=== PATIENT | female | born 1980 | race Caucasian/White ===

== ENCOUNTER 2018-01-29 11:00 | Emergency (ER) | payer OTHER, SELFPAY ==
[2018-01-29 11:09] VITALS: BP 117/79; PULSE 63; RESP 18; TEMP 36.1; O2SAT 97; BMI 29.9
--- NOTE | 2018-01-29 11:45 | ED.BACK ---
HPI - Back Pain/Injury General Chief Complaint: Back Pain/Injury Stated Complaint: Severe Low Back Diallo Time Seen by Provider: 01/29/18 11:10 Source: patient and EMS Mode of arrival: EMS Limitations: no limitations History of Present Illness HPI Narrative: Patient is a 37-year-old female who presents with back pain. This morning she was bending over putting on her pants when she had severe pain. She did not fall. She has numbness around her abdomen and down the lateral part of her legs. She has had back problems in the past, but not for time. No changes in bowel or bladder habits. MD Complaint: back pain Onset (ago): minute(s) Related Data Home Medications Medication Instructions Recorded Confirmed thyroid (pork) [Nature-Throid] 81.25 mg PO #0 07/26/16 [PRO-BIOTICS ] #0 04/04/17 multivitamin [Multiple Vitamins] 1 tab PO QDAY #0 04/04/17 Previous Rx's Medication Instructions Recorded medroxyprogesterone 0 PO Q DAY #14 tab 04/06/17 diazepam [Valium] 5 mg PO BID PRN #10 tab 01/29/18 meloxicam [Mobic] 7.5 mg PO DAILY #20 tab 01/29/18 Allergies Allergy/AdvReac Type Severity Reaction Status Date / Time No Known Allergies Allergy Verified 01/29/18 11:54 Review of Systems Review of Systems All systems reviewed & are unremarkable except as noted in HPI and below Constitutional Denies chills, Denies fever(s), Denies lethargy and Denies weakness Cardiovascular Denies dyspnea and Denies dyspnea on exertion Respiratory Denies cough, Denies dyspnea, Denies dyspnea on exertion and Denies wheezing Gastrointestinal Gastrointestinal: Denies abdominal pain, Denies change in bowel habits, Denies diarrhea, Denies nausea and Denies vomiting Musculoskeletal Reports system reviewed and no additional complaints, except as docu Integumentary/Breasts Denies pruritus, Denies erythema, Denies rash and Denies wounds Neurologic Reports system reviewed and no additional complaints, except as docu and Denies weakness Allergic/Immunologic Denies wheezing PFSH Medical History Hypothyroid (Acute) Family History Father Age: 68 Cancer Diabetes mellitus Mother Thyroid condition Sister Age: 41 Thyroid condition Sister Age: 31 Diabetes mellitus Social History Smoking Status: Never smoker Exam Initial Vital Signs Initial Vital Signs: Vital Signs Temperature 97 F L 01/29/18 11:09 Pulse Rate 63 01/29/18 11:09 Respiratory Rate 18 01/29/18 11:09 Blood Pressure 117/79 01/29/18 11:09 Pulse Oximetry 97 01/29/18 11:09 Const General: cooperative and well developed Nutritional Appearance: well nourished Orientation: alert, awake, oriented x3 and not confused Other: Crawled in position Chest Chest: normal inspection of the chest Back/Spine/Pelvis Back: normal to inspection and back tenderness (Midline and lumbar) Skin General: no rashes or lesions noted, No jaundice and No petechiae Neuro General: alert, oriented x3, gait normal and no focal motor deficits Speech: speech normal Course Orders Ordered: Discontinued Medications Diazepam (Valium) 5 mg PO NOW ONE Stop: 01/29/18 11:53 Last Admin: 01/29/18 11:58 Dose: 5 mg Ketorolac Tromethamine (Toradol) 60 mg IM NOW ONE Stop: 01/29/18 11:53 Last Admin: 01/29/18 11:58 Dose: 60 mg Vital Signs - 8 hr 01/29/18 11:09 01/29/18 12:56 Temperature 97 F L Pulse Rate 63 75 Respiratory Rate 18 18 Blood Pressure 117/79 115/70 Pulse Oximetry 97 100 MDM - Back Pain/Injury Lab Data Attestation: I reviewed the patient's lab results. preg negative Discharge Plan Departure Patient Disposition: Home, Self-Care Clinical Impression: Strain of lumbar region Discharge Date/Time: 01/29/18 12:57 Interventions: ED Discharge Assessment Last Done: 01/29/18 12:56 Instructions: DI for Low Back Pain Activity Restrictions/Additional Instructions: *You have been diagnosed with back pain *What to do: Recommend light activity no strenuous activity *Take medications as directed -Mobic 7.5 mg twice a day do not combine with other NSAIDs such as ibuprofen or Aleve Advil etc -Valium 1 tablet every 12 hr if needed for muscle spasm *Follow up with your primary care provider in 2-3 days *Return to ER if you should have changes in bowel or bladder habits, increasing pain [or] any new, worsening or concerning symptoms Prescriptions: New meloxicam [Mobic] 7.5 mg tablet 7.5 mg PO DAILY Qty: 20 RF: 0 diazepam [Valium] 5 mg tablet 5 mg PO BID PRN (Reason: muscle spasm) Qty: 10 RF: 0 No Action thyroid (pork) [Nature-Throid] 81.25 MG tablet 81.25 mg PO Qty: 0 RF: 0 multivitamin [Multiple Vitamins] 1 EACH tablet 1 tab PO QDAY Qty: 0 RF: 0 [PRO-BIOTICS ] Qty: 0 RF: 0 medroxyprogesterone 10 MG tablet PO Q DAY Qty: 14 RF: 1
[2018-01-29] MEDS: KETOROLAC 60 MG/2 ML VIAL IM (11:58)
[2018-01-29] MEDS: diazePAM 5 MG TABLET PO (11:58)
--- NOTE | 2018-01-29 12:46 | PC.NURSE ---
Able to get self off stretcher and ambulate slowly to the BR without assistance
[2018-01-29 12:56] VITALS: BP 115/70; PULSE 75; RESP 18; O2SAT 100
== END 2018-01-29 12:57 | disposition home or self-care (01) ==
PROVIDERS: Emergency Provider Emergency Medicine; Family Provider Naturopath; PCP Naturopath
DX: S39.012A Strain of muscle, fascia and tendon of lower back, initial encounter (principal); T73.3XXA Exhaustion due to excessive exertion, initial encounter
CPT/HCPCS: 81025; 96372; 99283; J1885

== ENCOUNTER → 2018-03-07 16:21 | Outpatient (CLI) | payer OTHER, SELFPAY ==
[2018-03-07 17:41] LABS: Free T3, Triiodothyronine Free 4.62 pg/mL (2.77-5.27); Free T4, Direct Thyroxine 0.88 ng/dL (0.78-2.19)
[2018-03-07 17:55] LABS: Thyroid Stimulating Hormone 3.63 uIU/mL (0.47-4.68)
[2018-03-09 14:58] LABS: Thyroid Peroxidase Antibodies 177 IU/mL (< 9)
== END ==
PROVIDERS: PCP Naturopath; Visit Provider Naturopath
DX: E06.3 Autoimmune thyroiditis (principal)
CPT/HCPCS: 36415; 84439; 84443; 84481; 86376

== ENCOUNTER → 2018-04-10 14:00 | Outpatient (CLI) | payer OTHER, SELFPAY ==
[2018-04-10 15:53] LABS: Thyroid Stimulating Hormone 2.45 uIU/mL (0.47-4.68)
== END ==
PROVIDERS: PCP Naturopath; Visit Provider Naturopath
DX: E06.3 Autoimmune thyroiditis (principal)
CPT/HCPCS: 36415; 84443

== ENCOUNTER → 2018-05-11 15:35 | Outpatient (CLI) | payer OTHER, SELFPAY ==
[2018-05-11 17:08] LABS: Thyroid Stimulating Hormone 1.15 uIU/mL (0.47-4.68)
== END ==
PROVIDERS: PCP Naturopath; Visit Provider Naturopath
DX: E06.3 Autoimmune thyroiditis (principal)
CPT/HCPCS: 36415; 84443

== ENCOUNTER → 2018-08-08 15:03 | Outpatient (CLI) | payer OTHER, SELFPAY ==
[2018-08-08 15:14] LABS: Bacteria Urine None Seen; WBC Urine None Seen (0-5/HPF)
[2018-08-08 15:28] LABS: Appearance Urine UA CLEAR; Bilirubin Urine UA NEGATIVE (NEGATIVE); Color Urine UA YELLOW; Glucose Urine UA NEGATIVE (Normal); Ketones Urine UA NEGATIVE (NEGATIVE); Leukocyte Esterase Urine UA NEGATIVE (NEGATIVE); Nitrite Urine UA NEGATIVE (Negative); Occult Blood Urine UA NEGATIVE (Negative); Protein Urine UA NEGATIVE (Negative); Urobilinogen Urine UA 0.2 E.U./dL (0.2)
[2018-08-08 15:43] LABS: Culture Indicated Urine Cult Not Indicated; RBC Urine None Seen (0-5/HPF); Urine Comments Microscopic Normal
== END ==
PROVIDERS: PCP Naturopath; Visit Provider Naturopath
DX: M54.5 Low back pain (principal); R35.0 Frequency of micturition; R19.5 Other fecal abnormalities
CPT/HCPCS: 81001

== ENCOUNTER → 2018-08-09 14:56 | Outpatient (CLI) | payer OTHER, SELFPAY ==
[2018-08-12 16:49] LABS: Fecal Immunochemical Test NOT DETECTED
== END ==
PROVIDERS: PCP Naturopath; Visit Provider Naturopath
DX: M54.5 Low back pain (principal); R35.0 Frequency of micturition; R19.5 Other fecal abnormalities
CPT/HCPCS: 82274

== ENCOUNTER → 2018-08-23 07:39 | Outpatient (CLI) | payer OTHER, SELFPAY ==
[2018-08-23 08:34] LABS: Add Manual Diff / Slide Review NO; Basophils Percent Auto 0.5 % (0-2); Eosinophils Percent Auto 2.1 % (2-4); Hematocrit 42.2 % (36-46); Hemoglobin 14.1 g/dL (12.0-16.0); Lymphocytes Percent Auto 22.8 % (25-40); Mean Corpuscular HGB Conc 33.3 % (30-36); Mean Corpuscular Hemoglobin 29.7 PG (26-34); Monocytes Percent Auto 7.2 % (3-14); Neutrophils Absolute Auto 4800 /uL (1500-7000); Neutrophils Percent Auto 67.4 % (50-75); Platelet Count 216 X10^3/uL (150-400); Red Blood Cell Count 4.75 X10^6/uL (4.0-5.2); Red Cell Distribution Width 12.5 % (11.6-14.8); White Blood Cell Count 7.1 X10^3/uL (4.5-11.0)
[2018-08-23 08:57] LABS: Alanine Aminotransferase 22 IU/L (9-52); Albumin 4.4 g/dL (3.5-5.0); Albumin Globulin Ratio 1.3 (1.0-2.8); Alkaline Phosphatase 63 U/L (38-126); Aspartate Aminotransferase 25 IU/L (14-36); BUN Creatinine Ratio 17.5 (6-22); Bilirubin Total 0.6 mg/dL (0.2-1.3); Blood Urea Nitrogen 14 mg/dL (7-17); Calcium 8.9 mg/dL (8.4-10.2); Carbon Dioxide 27 mmol/L (22-32); Chloride 104 mmol/L (98-107); Cholesterol 147 mg/dL (140-199); Estimated Glomerular Filt Rate > 60.0 mL/min (>60); Globulin 3.5 g/dL (1.7-4.1); Glucose 91 mg/dL (70-100); HDL Cholesterol 51 mg/dL (40-60); HEMOLYSIS < 15 (0-50); LDL Cholesterol Calculated 85 mg/dL (<100); Potassium 4.4 mmol/L (3.4-5.1); Sodium 143 mmol/L (137-145); Total Protein 7.9 g/dL (6.3-8.2); Triglycerides 53 mg/dL (35-150)
[2018-08-23 09:09] LABS: Free T4, Direct Thyroxine 0.91 ng/dL (0.78-2.19)
[2018-08-23 09:22] LABS: Thyroid Stimulating Hormone 2.89 uIU/mL (0.47-4.68)
[2018-08-24 15:23] LABS: Thyroid Peroxidase Antibodies 109 IU/mL (< 9)
== END ==
PROVIDERS: PCP Naturopath; Visit Provider Naturopath
DX: Z00.00 Encounter for general adult medical examination without abnormal findings (principal); E06.3 Autoimmune thyroiditis
CPT/HCPCS: 36415; 80053; 80061; 84439; 84443; 84481; 85025; 86376

== ENCOUNTER → 2018-10-12 16:14 | Outpatient (CLI) | payer OTHER, SELFPAY ==
[2018-10-12 18:05] LABS: Thyroid Stimulating Hormone 0.29 uIU/mL (0.47-4.68)
== END ==
PROVIDERS: PCP Naturopath; Visit Provider Naturopath
DX: E06.3 Autoimmune thyroiditis (principal)
CPT/HCPCS: 36415; 84443

== ENCOUNTER → 2018-12-04 08:19 | Outpatient (CLI) | payer OTHER, SELFPAY ==
--- NOTE | 2018-12-04 | DI.US.S_ITS ---
PROCEDURE: US ABDOMEN COMPLETE INDICATIONS: PERIUMBILICAL PAIN TECHNIQUE: Real-time scanning was performed of the abdominal and retroperitoneal organs, with image documentation. COMPARISON: None. FINDINGS: Liver: Liver is normal in size and homogeneous in echotexture. Gallbladder: Unremarkable. No sonographic Walker's sign Biliary ducts: Intrahepatic bile ducts are non-dilated. Extrahepatic bile duct caliber measures 1-2 mm. Normal is 6-7 mm or less in diameter, or 10 mm or less post-cholecystectomy. Pancreas: Visualized portions of the pancreas are sonographically normal. Spleen: Spleen is normal in size and homogeneous in echotexture. Kidneys: Kidneys are normal in size and echotexture. Right kidney measures 11.8 cm long; left kidney measures 10.9 cm long. No hydronephrosis or nephrolithiasis. No solid masses. Aorta: Visualized aorta is normal in caliber at less than 3 cm. Iliacs: Proximal common iliac arteries are normal in caliber at less than 2.5 cm. IVC: Intrahepatic inferior vena cava is patent. Miscellaneous: No free abdominal fluid. Small 1.0 cm umbilical hernia containing fat (nonreducible). IMPRESSION: Incidentally noted small 1.0 cm fat containing umbilical hernia. Elsewhere, no acute process seen. Dictated by: Gaurav Neff M.D. on 12/04/2018 at 9:25 Approved by: Gaurav Neff M.D. on 12/04/2018 at 9:27
== END ==
PROVIDERS: PCP Naturopath; Visit Provider Naturopath
DX: R10.9 Unspecified abdominal pain (principal); K42.9 Umbilical hernia without obstruction or gangrene
CPT/HCPCS: 76700

== ENCOUNTER → 2018-12-15 14:15 | Outpatient (CLI) | payer OTHER, SELFPAY ==
[2018-12-15 15:40] LABS: Thyroid Stimulating Hormone < 0.02 uIU/mL (0.47-4.68)
== END ==
PROVIDERS: PCP Naturopath; Visit Provider Naturopath
DX: E06.3 Autoimmune thyroiditis (principal)
CPT/HCPCS: 36415; 84443

== ENCOUNTER → 2019-02-20 16:13 | Outpatient (CLI) | payer OTHER, SELFPAY ==
[2019-02-20 17:49] LABS: Thyroid Stimulating Hormone 8.83 uIU/mL (0.47-4.68)
== END ==
PROVIDERS: PCP Naturopath; Visit Provider Naturopath
DX: E06.3 Autoimmune thyroiditis (principal)
CPT/HCPCS: 36415; 84443

== ENCOUNTER → 2019-04-11 11:44 | Outpatient (CLI) | payer OTHER, SELFPAY ==
[2019-04-11 12:52] LABS: Free T4, Direct Thyroxine 0.77 ng/dL (0.78-2.19)
[2019-04-11 13:06] LABS: Thyroid Stimulating Hormone 2.04 uIU/mL (0.47-4.68)
[2019-04-13 15:55] LABS: Thyroid Peroxidase Antibodies 507 IU/mL (< 9)
== END ==
PROVIDERS: PCP Naturopath; Visit Provider Naturopath
DX: E06.3 Autoimmune thyroiditis (principal)
CPT/HCPCS: 36415; 84439; 84443; 84481; 86376

== ENCOUNTER → 2019-09-27 17:47 | Outpatient (CLI) | payer OTHER, SELFPAY | PROVIDERS: PCP Naturopath; Visit Provider Physician Assistant | DX: J02.9 Acute pharyngitis, unspecified (principal) | CPT/HCPCS: 87070 ==

== ENCOUNTER → 2019-10-18 08:38 | Outpatient (CLI) | payer OTHER, SELFPAY ==
[2019-10-18 09:09] LABS: Add Manual Diff / Slide Review NO; Basophils Absolute Auto 0 /uL (0-100); Basophils Percent Auto 0.4 % (0-2); Eosinophils Absolute Auto 100 /uL (0-450); Eosinophils Percent Auto 1.5 % (2-4); Hematocrit 42.3 % (36-46); Hemoglobin 14.4 g/dL (12.0-16.0); Lymphocytes Absolute Auto 1500 /uL (1100-4500); Lymphocytes Percent Auto 23.9 % (25-40); Mean Corpuscular Hemoglobin 30.6 PG (26-34); Mean Corpuscular Volume 90.1 fL (80-100); Monocytes Absolute Auto 400 /uL (0-900); Monocytes Percent Auto 6.3 % (3-14); Neutrophils Absolute Auto 4400 /uL (1500-7000); Neutrophils Percent Auto 67.9 % (50-75); Platelet Count 236 X10^3/uL (150-400); Red Blood Cell Count 4.69 X10^6/uL (4.0-5.2); Red Cell Distribution Width 12.1 % (11.6-14.8); White Blood Cell Count 6.5 X10^3/uL (4.5-11.0)
[2019-10-18 09:18] LABS: Alanine Aminotransferase 19 IU/L (<35); Albumin 4.5 g/dL (3.5-5.0); Albumin Globulin Ratio 1.2 (1.0-2.8); Alkaline Phosphatase 67 U/L (38-126); Aspartate Aminotransferase 30 IU/L (14-36); BUN Creatinine Ratio 18.9 (6-22); Bilirubin Total 0.8 mg/dL (0.2-1.3); Blood Urea Nitrogen 17 mg/dL (7-17); Calcium 9.2 mg/dL (8.4-10.2); Carbon Dioxide 26 mmol/L (22-32); Chloride 105 mmol/L (98-107); Cholesterol 183 mg/dL (140-199); Estimated Glomerular Filt Rate > 60.0 mL/min (>60); Globulin 3.8 g/dL (1.7-4.1); Glucose 93 mg/dL (70-100); HDL Cholesterol 44 mg/dL (40-60); HEMOLYSIS < 15 (0-50); LDL Cholesterol Calculated 122 mg/dL (<100); Potassium 4.5 mmol/L (3.4-5.1); Sodium 140 mmol/L (137-145); Total Protein 8.3 g/dL (6.3-8.2); Triglycerides 87 mg/dL (35-150)
[2019-10-18 10:19] LABS: Free T3, Triiodothyronine Free 2.86 pg/mL (2.77-5.27); Free T4, Direct Thyroxine 0.74 ng/dL (0.78-2.19)
[2019-10-18 10:33] LABS: Thyroid Stimulating Hormone 3.41 uIU/mL (0.47-4.68)
[2019-10-20 15:47] LABS: Thyroid Peroxidase Antibodies 171 IU/mL (< 9)
== END ==
PROVIDERS: PCP Naturopath; Referring Provider Naturopath; Visit Provider Naturopath
DX: Z00.00 Encounter for general adult medical examination without abnormal findings (principal); E06.3 Autoimmune thyroiditis
CPT/HCPCS: 36415; 80053; 80061; 84439; 84443; 84481; 85025; 86376

== ENCOUNTER 2019-12-31 00:11 | Emergency (ER) | payer OTHER, SELFPAY ==
[2019-12-31 00:05] VITALS: BP 108/85; PULSE 80; RESP 16; TEMP 36.9; O2SAT 97; BMI 32.5
--- NOTE | 2019-12-31 00:24 | ED_ITS ---
HPI - Back Pain/Injury General Chief Complaint: Back Pain/Injury Stated Complaint: Back Pain Time Seen by Provider: 12/31/19 00:15 Source: patient and EMS Mode of arrival: EMS Limitations: no limitations History of Present Illness HPI Narrative: 39F nonsmoker with chronic history of back pain presents by EMS for evaluation severe lumbar pain with radiation into both hips that started while painting earlier today. She denies any numbness, tingling or weakness. She has no trouble controlling bowel or bladder. She has no foot drop. She denies any significant impact full injury. She has a chronic history of disc problems in her lumbar spine and frequently sees a chiropractor. She denies fever or chills. She does take naltrexone daily as a treatment for her thyroiditis. Pain is worse with motion and improves with rest. Related Data Home Medications Medication Instructions Recorded Confirmed [PRO-BIOTICS ] #0 04/04/17 10/14/19 multivitamin [Multiple Vitamins] 1 tab PO QDAY #0 04/04/17 10/14/19 thyroid (pork) 81.25 mg tablet 65 mg PO #0 tab 03/21/18 10/14/19 naltrexone PO 09/27/19 10/14/19 Previous Rx's Medication Instructions Recorded clomiphene citrate 50 mg tablet 50 mg PO DAILY #5 tab 09/04/19 cyclobenzaprine 10 mg tablet 10 mg PO BEDTIME #30 tab 10/14/19 hydrocodone-acetaminophen 1 tab PO Q4-6H PRN #10 tab 12/31/19 ketorolac 10 mg PO Q6H PRN #14 tab 12/31/19 prednisone 20 mg PO DAILY #5 tab 12/31/19 Allergies Allergy/AdvReac Type Severity Reaction Status Date / Time No Known Allergies Allergy Verified 10/14/19 12:25 Review of Systems Constitutional Constitutional: Denies chills, Denies fatigue, Denies fever(s), Denies frequent falls, Denies lethargy and Denies weakness Eyes Eyes: Denies change in vision, Denies eye discharge, Denies irritation and Denies loss of vision ENT Ears, Nose, Mouth, and Throat: Denies change in voice, Denies dizziness, Denies neck pain, Denies sore throat and Denies throat swelling Cardiovascular Cardiovascular: Denies chest pain, Denies irregular heart rhythm, Denies lightheadedness, Denies palpitations, Denies dyspnea, Denies dyspnea on exertion and Denies orthopnea Respiratory Respiratory: Denies cough, Denies dyspnea, Denies dyspnea on exertion and Denies wheezing Gastrointestinal Gastrointestinal: Denies abdominal pain, Denies change in bowel habits, Denies diarrhea, Denies nausea and Denies vomiting Genitourinary Genitourinary: Denies hematuria, Denies flank pain, Denies urinary incontinence and Denies urinary urgency Musculoskeletal Musculoskeletal: Reports back pain, Denies muscle weakness, Denies neck pain, Denies numbness and Denies tingling Integumentary/Breasts Skin/Breast: Denies pruritus, Denies erythema, Denies rash and Denies wounds Neurologic Neurologic: Denies behavioral changes, Denies confusion, Denies dizziness, Denies frequent falls, Denies loss of vision, Denies numbness, Denies tingling and Denies weakness Psychiatric Psychiatric: Denies anxiety, Denies behavioral changes, Denies confusion, Denies depression, Denies homicidal ideation and Denies suicidal ideation Endocrine Endocrine: Denies fatigue, Denies flushing and Denies palpitations Hematologic/Lymphatic Hematologic/Lymphatic: Denies easy bruising Allergic/Immunologic Allergic/Immunologic: Denies urticaria, Denies throat swelling and Denies wheezing Patient History Family History (Updated 03/20/18 @ 16:40 by Vinita Johnson) Father Age: 70 Cancer Diabetes mellitus Mother Thyroid condition MVA (motor vehicle accident) Sister Age: 43 Thyroid condition Sister Age: 33 Diabetes mellitus Social History Smoking Status: Never smoker Smoking Status: Never smoker alcohol intake frequency: 0-2 drinks per day Substance Use Type: does not use Exam Narrative Exam Narrative: GENERAL: [39] year old patient appears stated age. Well- nourished, well-developed patient, in moderate distress, obviously uncomfortable HEAD: Atraumatic. Normocephalic. EYES: Pupils equal round and reactive. Extraocular motions intact. No scleral icterus. No injection or drainage. ENT: Nose without bleeding, purulent drainage. Throat without erythema, tonsillar hypertrophy or exudate. Airway patent. NECK: Trachea midline. Non tender CARDIOVASCULAR: Regular rate and rhythm without murmurs, gallops, or rubs. RESPIRATORY: Clear to auscultation. Breath sounds equal bilaterally. No wheezes, rales, or rhonchi. GASTROINTESTINAL: Abdomen soft, non-tender, nondistended. EXTREMITIES: No edema or joint tenderness. BACK: curing oven tender but free of any obvious external abnormalities. Patient exam notes decreased range of motion and muscle spasm, but no CVA tenderness, or vertebral point tenderness. There are no symptoms of cauda equina such as saddle anesthesia, and decreased reflexes, decreased sensation or strength. NEURO: AOx3. SKIN: No rash or erythema of visible areas Initial Vital Signs Initial Vital Signs: Vital Signs Temperature 98.4 F 12/31/19 00:05 Pulse Rate 80 12/31/19 00:05 Respiratory Rate 16 12/31/19 00:05 Blood Pressure 108/85 12/31/19 00:05 Pulse Oximetry 97 12/31/19 00:05 Course Course Course Narrative: tremendous improvement after the above stated therapies. Orders Ordered: Discontinued Medications Hydrocodone Bitart/Acetaminophen (Vicodin 5/325 Prepack) 1 bottle MISC SEEINSTR ONE Stop: 12/31/19 01:56 Last Admin: 12/31/19 02:12 Dose: 1 bottle Documented by: LALO Hydromorphone HCl (Dilaudid) 1 mg IM NOW ONE Stop: 12/31/19 00:26 Last Admin: 12/31/19 01:10 Dose: 1 mg Documented by: LIZ Ketorolac Tromethamine (Toradol) 60 mg IM NOW ONE Stop: 12/31/19 00:26 Last Admin: 12/31/19 01:10 Dose: 60 mg Documented by: LIZ Prednisone (Deltasone) 40 mg PO NOW ONE Stop: 12/31/19 00:26 Last Admin: 12/31/19 01:09 Dose: 40 mg Documented by: LIZ Vital Signs Vital signs: Vital Signs - 8 hr 12/31/19 00:05 12/31/19 02:17 Temperature 98.4 F Pulse Rate 80 57 L Respiratory Rate 16 16 Blood Pressure 108/85 107/57 L Pulse Oximetry 97 96 MDM - Back Pain/Injury MDM Narrative Medical decision making narrative: Multiple etiologies of back pain considered including; Epidural abscess, cauda equina, mass occupying lesion, and other considered Discharge Plan Departure Patient Disposition: Home Clinical Impression: Back pain due to injury Discharge Date/Time: 12/31/19 02:18 Instructions: DI for Back Strain or Sprain Activity Restrictions/Additional Instructions: *You have been diagnosed with [acute on chronic lumbar pain with radiculopathy] *What to do: *Take medications as directed *Follow up with your primary care provider in 2-3 days, call for an appointment. Let them know you were seen in the Emergency Department and that we ask that you be seen in follow up *Return to ER if you should have any new, worsening or concerning symptoms Prescriptions: New hydrocodone-acetaminophen 5-325 mg tablet 1 tab PO Q4-6H PRN (Reason: pain) Qty: 10 RF: 0 prednisone 20 mg tablet 20 mg PO DAILY Qty: 5 RF: 0 ketorolac 10 mg tablet 10 mg PO Q6H PRN (Reason: pain) Qty: 14 RF: 0 No Action naltrexone PO RF: 0 cyclobenzaprine 10 mg tablet 10 mg PO BEDTIME Qty: 30 RF: 0 multivitamin [Multiple Vitamins] 1 EACH tablet 1 tab PO QDAY Qty: 0 RF: 0 [PRO-BIOTICS ] Qty: 0 RF: 0 thyroid (pork) [Nature-Throid] 81.25 mg tablet 65 mg PO Qty: 0 RF: 0 clomiphene citrate 50 mg tablet 50 mg PO DAILY Qty: 5 RF: 2 Referrals: Deysi Mauricio ND [Primary Care Provider] -
[2019-12-31] MEDS: predniSONE 20 MG TABLET 40 MG PO (01:09)
[2019-12-31] MEDS: HYDROMORPHONE 1 MG INJ IM (01:10)
[2019-12-31] MEDS: KETOROLAC 60 MG/2 ML VIAL IM (01:10)
[2019-12-31] MEDS: HYDROCODONE/ACET 5/325 PREPACK 1 BOTTLE MISC (02:12)
[2019-12-31 02:17] VITALS: BP 107/57; PULSE 57; RESP 16; O2SAT 96
== END 2019-12-31 02:18 | disposition home or self-care (01) ==
PROVIDERS: Emergency Provider Emergency Medicine; PCP Naturopath
DX: M54.6 Pain in thoracic spine (principal)
CPT/HCPCS: 96372; 99283; J1170; J1885

== ENCOUNTER → 2020-01-10 15:01 | Outpatient (CLI) | payer OTHER, SELFPAY ==
[2020-01-10 16:12] LABS: Free T3, Triiodothyronine Free 3.83 pg/mL (2.77-5.27); Free T4, Direct Thyroxine 0.93 ng/dL (0.78-2.19)
[2020-01-10 16:26] LABS: Thyroid Stimulating Hormone 0.36 uIU/mL (0.47-4.68)
== END ==
PROVIDERS: PCP Naturopath; Referring Provider Naturopath; Visit Provider Naturopath
DX: E06.3 Autoimmune thyroiditis (principal)
CPT/HCPCS: 36415; 84439; 84443; 84481

== ENCOUNTER → 2020-04-14 14:38 | Outpatient (CLI) | payer OTHER, SELFPAY ==
--- NOTE | 2020-04-14 | DI.RAD.S_ITS ---
PROCEDURE: XR KNEE RT 3V INDICATIONS: pain in right knee TECHNIQUE: 3 views of the knee were acquired. COMPARISON: None. FINDINGS: Bones: No fractures or dislocations. No suspicious bony lesions. Moderate narrowing of the medial femoral tibial joint and tricompartmental periarticular osteophyte formation. Soft tissues: Trace joint effusion. No suspicious soft tissue calcifications. 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 Dictated by: Boo Deluna [facility] Interpreted: Yuval Merlos MD on 04/14/2020 at 16:15 Approved by: Yuval Merlos M.D. on 04/14/2020 at 17:40
== END ==
PROVIDERS: PCP Naturopath; Referring Provider Naturopath; Visit Provider Naturopath
DX: M25.561 Pain in right knee (principal); M17.11 Unilateral primary osteoarthritis, right knee
CPT/HCPCS: 73562

== ENCOUNTER → 2020-08-12 13:31 | Outpatient (CLI) | payer OTHER, SELFPAY ==
[2020-08-12 15:18] LABS: Thyroid Stimulating Hormone 3.23 uIU/mL (0.47-4.68)
== END ==
PROVIDERS: PCP Naturopath; Referring Provider Naturopath; Visit Provider Naturopath
DX: E06.3 Autoimmune thyroiditis (principal)
CPT/HCPCS: 36415; 84443

== ENCOUNTER → 2021-01-10 08:52 | Outpatient (CLI) | payer OTHER, SELFPAY ==
[2021-01-10 09:57] LABS: Add Manual Diff / Slide Review NO; Basophils Absolute Auto 0 /uL (0-100); Basophils Percent Auto 0.5 % (0-2); Eosinophils Absolute Auto 100 /uL (0-450); Eosinophils Percent Auto 1.2 % (2-4); Hematocrit 41.9 % (36-46); Hemoglobin 14.2 g/dL (12.0-16.0); Lymphocytes Absolute Auto 1600 /uL (1100-4500); Lymphocytes Percent Auto 18.5 % (25-40); Mean Corpuscular Hemoglobin 30.3 PG (26-34); Mean Corpuscular Volume 89.1 fL (80-100); Monocytes Absolute Auto 400 /uL (0-900); Monocytes Percent Auto 5.2 % (3-14); Neutrophils Absolute Auto 6300 /uL (1500-7000); Neutrophils Percent Auto 74.6 % (50-75); Platelet Count 209 X10^3/uL (150-400); Red Cell Distribution Width 12.7 % (11.6-14.8); White Blood Cell Count 8.5 X10^3/uL (4.5-11.0)
[2021-01-10 10:48] LABS: Alanine Aminotransferase 33 IU/L (<35); Albumin 4.2 g/dL (3.5-5.0); Albumin Globulin Ratio 1.2 (1.0-2.8); Alkaline Phosphatase 65 U/L (38-126); Aspartate Aminotransferase 35 IU/L (14-36); BUN Creatinine Ratio 18.4 (6-22); Bilirubin Total 0.6 mg/dL (0.2-1.3); Blood Urea Nitrogen 16 mg/dL (7-17); Calcium 9.4 mg/dL (8.4-10.2); Carbon Dioxide 24 mmol/L (22-32); Chloride 107 mmol/L (98-107); Cholesterol 172 mg/dL (140-199); Estimated Glomerular Filt Rate > 60.0 mL/min (>60); Globulin 3.6 g/dL (1.7-4.1); Glucose 97 mg/dL (70-100); HDL Cholesterol 44 mg/dL (40-60); HEMOLYSIS < 15 (0-50); LDL Cholesterol Calculated 111 mg/dL (<100); Potassium 4.7 mmol/L (3.4-5.1); Sodium 138 mmol/L (137-145); Total Protein 7.8 g/dL (6.3-8.2); Triglycerides 87 mg/dL (35-150)
[2021-01-10 11:38] LABS: Thyroid Stimulating Hormone 0.104 uIU/mL (0.47-4.68)
[2021-01-11 07:07] LABS: Thyroid Peroxidase Antibodies 159 IU/mL (0-34)
== END ==
PROVIDERS: PCP Naturopath; Referring Provider Naturopath; Visit Provider Naturopath
DX: Z00.00 Encounter for general adult medical examination without abnormal findings (principal); E06.3 Autoimmune thyroiditis
CPT/HCPCS: 36415; 80053; 80061; 84443; 85025; 86376

== ENCOUNTER 2021-04-26 17:13 | Observation (INO) | payer OTHER, SELFPAY ==
[2021-04-26] VITALS (7 sets, daily range): BP systolic 120–148; BP diastolic 60–85; PULSE 60–69; RESP 16–22; TEMP 36.3–36.6; O2SAT 96–100; BMI 30.4
--- NOTE | 2021-04-26 17:28 | PC.NURSE ---
Upon arriving with EMS pt has gone straight to the bathroom with diarrhea. Pt given wipes, depends, and gown
[2021-04-26 17:55] LABS: Add Manual Diff / Slide Review NO; Basophils Absolute Auto 0 /uL (0-100); Basophils Percent Auto 0.4 % (0-2); Eosinophils Absolute Auto 2000 /uL (0-450); Eosinophils Percent Auto 16.9 % (2-4); Hemoglobin 15.7 g/dL (12.0-16.0); Lymphocytes Absolute Auto 2700 /uL (1100-4500); Lymphocytes Percent Auto 22.9 % (25-40); Mean Corpuscular HGB Conc 33.4 % (30-36); Mean Corpuscular Hemoglobin 30.3 PG (26-34); Mean Corpuscular Volume 90.7 fL (80-100); Monocytes Absolute Auto 600 /uL (0-900); Neutrophils Absolute Auto 6400 /uL (1500-7000); Neutrophils Percent Auto 54.8 % (50-75); Platelet Count 203 X10^3/uL (150-400); Red Blood Cell Count 5.18 X10^6/uL (4.0-5.2); Red Cell Distribution Width 13.2 % (11.6-14.8); White Blood Cell Count 11.6 X10^3/uL (4.5-11.0)
[2021-04-26] MEDS: ONDANSETRON 4 MG/2 ML INJ IV (18:02)
[2021-04-26 18:04] LABS: Alanine Aminotransferase 35 IU/L (<35); Albumin 4.5 g/dL (3.5-5.0); Albumin Globulin Ratio 1.3 (1.0-2.8); Alkaline Phosphatase 97 U/L (38-126); Aspartate Aminotransferase 46 IU/L (14-36); Bilirubin Total 0.6 mg/dL (0.2-1.3); Blood Urea Nitrogen 13 mg/dL (7-17); Calcium 9.5 mg/dL (8.4-10.2); Carbon Dioxide 25 mmol/L (22-32); Chloride 104 mmol/L (98-107); Estimated Glomerular Filt Rate > 60.0 mL/min (>60); Globulin 3.6 g/dL (1.7-4.1); Glucose 119 mg/dL (70-100); Potassium 3.3 mmol/L (3.4-5.1); Sodium 138 mmol/L (137-145); Total Protein 8.1 g/dL (6.3-8.2)
[2021-04-26 18:21] LABS: HEMOLYSIS 25 (0-50)
[2021-04-26 18:26] LABS: Lipase 8014 U/L (23-300)
--- NOTE | 2021-04-26 18:34 | DI.CT.S_ITS ---
PROCEDURE: CT ABDOMEN PELVIS W CON INDICATIONS: iv contrast only/n/v/d abd pain TECHNIQUE: After the administration of intravenous contrast, axial sections acquired from the lung bases to the pubic symphysis. Coronal and sagittal reformats were performed. For radiation dose reduction, the following was used: automated exposure control, adjustment of mA and/or kV according to patient size. COMPARISON: None. FINDINGS: Image quality: Excellent. Lung bases: Unremarkable. Heart: No significant findings. ABDOMEN: Liver: Unremarkable. Gallbladder: Is within normal limits Biliary ducts: Unremarkable. Pancreas: Unremarkable. Spleen: Unremarkable. Adrenal Glands: Unremarkable. Kidneys and Ureters: Unremarkable. Stomach and Bowel: Stomach is nondistended. Small hiatal hernia is present. There are multiple moderately thickened loops of small. There is thickening the cecum and ascending colon. Visualized portions of the appendix are within normal limits. Remainder of the colon is nondistended. Peritoneum: No pneumoperitoneum. Small amount of free fluid within the pelvis, perihepatic location, and within the right pericolic gutter. Ventral Wall: No hernias. Abdominal Nodes: No retroperitoneal or mesenteric adenopathy by size criteria. Multiple mildly prominent mesenteric lymph nodes are present, consistent with reactive lymph node enlargement. Vessels: Aorta and inferior vena cava are normal in size. PELVIS: Pelvic Organs: Unremarkable. Bladder: Unremarkable. Pelvic Nodes: No enlarged lymph nodes. Miscellaneous: No hernias are seen. Bones: Unremarkable. IMPRESSION: 1. Enterocolitis. Small amount associated free fluid. 2. Visualized portions of the appendix are within normal limits. 3. Small hiatal hernia. Dictated by: Kenneth Lester M.D. on 04/26/2021 at 18:59 Approved by: Kenneth Lester M.D. on 04/26/2021 at 19:02
--- NOTE | 2021-04-26 18:38 | ED_ITS ---
HPI - Nausea/Vomiting/Diarrhea General Chief complaint: Nausea/Vomiting/Diarrhea Stated complaint: n/v Time Seen by Provider: 04/26/21 18:04 Source: patient and EMS Mode of arrival: EMS Limitations: no limitations History of Present Illness HPI Narrative: Patient brought in by ambulance, was in the car with . was driving. Had sudden-onset nausea vomiting diarrhea. No chest pain no back pain abdominal pain. Same event occurred last weekend after drinking some wine and immediately had nausea vomiting diarrhea. Never had any pain. Through the week had bloating sensation abdomen. No prior history of pancreatitis or abdominal surgeries. No recent food intolerance. No fever chills. Patient today had some wine as well at dinner, got in the car with , was driving, had sudden onset of nausea vomit diarrhea. EMS brought patient here. Zofran and normal saline started here. Patient states prior to last week with drink occasional alcohol daily 1 or 2 drinks a day. Patient is awake alert orient x4. Related Data Home Medications Medication Instructions Recorded Confirmed [PRO-BIOTICS ] #0 04/04/17 10/14/19 multivitamin (Multiple Vitamins) 1 tab PO QDAY #0 04/04/17 10/14/19 thyroid (pork) 81.25 mg tablet 65 mg PO #0 tab 03/21/18 10/14/19 (Nature-Throid) naltrexone PO 09/27/19 10/14/19 Previous Rx's Medication Instructions Recorded clomiphene citrate 50 mg tablet 50 mg PO DAILY #5 tab 09/04/19 cyclobenzaprine 10 mg tablet 10 mg PO BEDTIME #30 tab 10/14/19 hydrocodone 5 mg-acetaminophen 325 1 tab PO Q4-6H PRN #10 tab 12/31/19 mg tablet ketorolac 10 mg tablet 10 mg PO Q6H PRN #14 tab 12/31/19 prednisone 20 mg tablet 20 mg PO DAILY #5 tab 12/31/19 Allergies Allergy/AdvReac Type Severity Reaction Status Date / Time shellfish derived Allergy Intermediate Verified 04/26/21 21:49 No Known Allergies Allergy Verified 10/14/19 12:25 Review of Systems Review of Systems Narrative: GENERAL: Denies chills, fatigue, malaise, fever, sweats. HEENT: Denies sinus pain, ear pain, sore throat RESPIRATORY: Denies dyspnea, cough CARDIOVASCULAR: Denies chest pain, palpitations GASTROINTESTINAL: Complains nausea, vomiting, and diarrhea, denies abdominal pain : Denies dysuria, frequency, hematuria MUSCULOSKELETAL: denies muscle or bony pain SKIN: Denies rash, skin lesions NEUROLOGIC: Denies weakness, numbness ROS Unobtainable: All systems reviewed & are unremarkable except as noted in HPI and below Patient History Medical History Acne (~1992) Asthma Star's disease (~2002) Hypothyroid (~2002) Migraines (02/2012) Pityrosporum folliculitis (2009) Vaginal delivery (2013) Wrist fracture Surgical History [place] teeth extracted Family History Father Age: 72 Cancer Diabetes mellitus Mother Thyroid condition MVA (motor vehicle accident) Sister Age: 45 Thyroid condition Sister Age: 35 Diabetes mellitus Social History Smoking Status: Never smoker Smoking Status: Never smoker alcohol intake frequency: 0-2 drinks per day Substance Use Type: does not use Exam Narrative Exam Narrative: GENERAL: in no distress, not toxic not dyspneic HEAD: Normocephalic. EYES: Pupils equal round No scleral icterus. No injection no discharge ENT: Mucous membranes moist. NECK: Trachea midline. CARDIOVASCULAR: Regular rate and rhythm without murmurs RESPIRATORY: Clear to auscultation. Breath sounds equal bilaterally. No wheezes, rales, or rhonchi. GASTROINTESTINAL: Abdomen soft, non-tender, no peritoneal signs, normal bowel sounds EXTREMITIES: No gross deformities. BACK: No flank tenderness. NEURO: AOx4. SKIN: Warm and dry PSYCH: Not anxious, is cooperative Initial Vital Signs Initial Vital Signs: Vital Signs Temperature 98 F 04/26/21 17:30 Pulse Rate 60 04/26/21 17:30 Respiratory Rate 20 04/26/21 17:30 Blood Pressure 148/85 H 04/26/21 17:30 Pulse Oximetry 98 04/26/21 17:30 Course Course Course Narrative: No new issues during course of stay. No withdrawal symptoms. Orders Ordered: ED Orders 04/26/21 18:34 CT abdomen pelvis w con Stat 04/26/21 19:05 Respiratory Panel (Film Array) Stat Acetaminophen (Acetaminophen 325 Mg Tablet) 650 mg PO Q6HR PRN PRN Reason: Fever/Mild Pain (1-3) Sodium Chloride (Normal Saline 0.9%) 1,000 mls @ 100 mls/hr IV CONT FRANKO Last Admin: 04/26/21 22:50 Dose: 100 mls/hr Documented by: CTRGLADYS Levothyroxine Sodium (Levothyroxine 125 Mcg Tablet) 125 mcg PO DAILY@0600 [facility] Levothyroxine Sodium (Levothyroxine 50 Mcg Tablet) 50 mcg PO DAILY@0600 [facility] Liothyronine Sodium (Liothyronine 5 Mcg Tablet) 5 mcg PO DAILY [facility] Lorazepam (Lorazepam 2 Mg/Ml Inj) 0.5 mg IV Q6HR PRN PRN Reason: Nausea And Vomiting Metoclopramide HCl (Metoclopramide 10 Mg/2 Ml Inj) 5 mg IV Q6HR PRN PRN Reason: Nausea And Vomiting Naloxone HCl (Naloxone 0.4 Mg/Ml Vial) 0.2 mg IV Q2MIN PRN PRN Reason: Opiate Reversal Promethazine HCl (Promethazine 25 Mg Tablet) 12.5 mg PO Q6HR PRN PRN Reason: Nausea Discontinued Medications Sodium Chloride (Normal Saline 0.9%) 1,000 mls @ 1,000 mls/hr IV BOLUS ONE Stop: 04/26/21 19:31 Last Infusion: 04/26/21 20:07 Dose: 0 mls/hr Documented by: Admin: 04/26/21 19:19 Dose: 1,000 mls/hr Documented by: SUMMER Sodium Chloride (Normal Saline 0.9%) 1,000 mls @ 100 mls/hr IV CONT FRANKO Last Infusion: 04/26/21 22:08 Dose: 0 mls/hr Documented by: Admin: 04/26/21 21:30 Dose: 100 mls/hr Documented by: ABBY Potassium Chloride 40 meq/ (Sodium Chloride) 1,020 mls @ 100 mls/hr IV CONT FRANKO Last Admin: 04/26/21 22:29 Dose: Not Given Documented by: ABBY POTASSIUM CHLORIDE IN WATER (Potassium Cl 10 Meq/100 Ml Jaja) 10 meq in 100 mls @ 100 mls/hr IV Q1H FRANKO Stop: 04/27/21 02:29 Last Admin: 04/27/21 02:38 Dose: 100 mls/hr Documented by: Infusion: 04/27/21 02:31 Dose: 100 mls/hr Documented by: Admin: 04/27/21 01:31 Dose: 100 mls/hr Documented by: Infusion: 04/27/21 01:13 Dose: 100 mls/hr Documented by: Admin: 04/27/21 00:13 Dose: 100 mls/hr Documented by: Infusion: 04/26/21 23:50 Dose: 100 mls/hr Documented by: Admin: 04/26/21 22:50 Dose: 100 mls/hr Documented by: ABBY Lorazepam (Lorazepam 2 Mg/Ml Inj) 1 mg IV NOW ONE Stop: 04/26/21 18:33 Last Admin: 04/26/21 18:40 Dose: 1 mg Documented by: SUMMER Ondansetron HCl (Ondansetron 4 Mg/2 Ml Inj) 4 mg IV NOW ONE Stop: 04/26/21 17:53 Last Admin: 04/26/21 18:02 Dose: 4 mg Documented by: SUMMER Reevaluation(s) Reevaluation #1: Reviewed results with patient and . They agree with treatment plan for observation admission for pancreatitis IV fluids and nausea and diarrhea control Time: 18:45 Reevaluation #2: CIWA score 1. Again reviewed results and CT scan imaging with patient has been. They agree for observation admission here. Time: 19:28 Consultations Consultation #1: Spoke with nurse practitioner Misty as well as hospitalist Dr. Carrera, they will admit patient Time: 19:28 Vital Signs Vital signs: Vital Signs - 8 hr 04/26/21 17:30 Temperature 98 F Pulse Rate 60 Respiratory Rate 20 Blood Pressure 148/85 H Pulse Oximetry 98 MDM - Nausea/Vomiting/Diarrhea Differential Diagnosis Differential diagnosis: Likely gastroenteritis and other (Pancreatitis cholecystitis alcohol gastritis) Lab Data Result diagrams: 04/26/21 17:38 04/26/21 17:38 Labs: Lab Results 04/26/21 04/26/21 04/26/21 Range/Units 17:38 17:38 17:38 WBC 11.6 H (4.5-11.0) X10^3/uL RBC 5.18 (4.0-5.2) X10^6/uL Hgb 15.7 (12.0-16.0) g/dL Hct 47.0 H (36-46) % MCV 90.7 (80-100) fL MCH 30.3 (26-34) PG MCHC 33.4 (30-36) % RDW 13.2 (11.6-14.8) % Plt Count 203 (150-400) X10^3/uL Neut % (Auto) 54.8 (50-75) % Lymph % (Auto) 22.9 L (25-40) % [place] % (Auto) 5.0 (3-14) % Eos % (Auto) 16.9 H (2-4) % Baso % (Auto) 0.4 (0-2) % Neut # (Auto) 6400 (3951-8523) /uL Lymph # (Auto) 2700 (8486-6801) /uL [place] # (Auto) 600 (0-900) /uL Eos # (Auto) 2000 H (0-450) /uL Baso # (Auto) 0 (0-100) /uL Sodium 138 (137-145) mmol/L Potassium 3.3 L (3.4-5.1) mmol/L Chloride 104 (98-107) mmol/L Carbon Dioxide 25 (22-32) mmol/L BUN 13 (7-17) mg/dL Creatinine 1.00 (0.52-1.04) mg/dL Estimated GFR > 60.0 (>60) mL/min BUN/Creatinine Ratio 13.0 (6-22) Glucose 119 H (70-100) mg/dL Calcium 9.5 (8.4-10.2) mg/dL Total Bilirubin 0.6 (0.2-1.3) mg/dL AST 46 H (14-36) IU/L ALT 35 H (<35) IU/L Alkaline Phosphatase 97 (38-126) U/L Total Protein 8.1 (6.3-8.2) g/dL Albumin 4.5 (3.5-5.0) g/dL Globulin 3.6 (1.7-4.1) g/dL Albumin/Globulin Ratio 1.3 (1.0-2.8) Lipase 8014 H (23-300) U/L Ethyl Alcohol 31 H ( - 10) mg/dL Chlamy pneumoniae PCR (Not Detect) Adenovirus (PCR) (Not Detect) B. pertussis DNA (PCR) (Not Detecte) B.parapertussis DNA PCR (Not Detecte) Coronavirus OC43 (PCR) (Not Detect) Coronavirus HKU1 (PCR) (Not Detect) Coronavirus 229E (PCR) (Not Detect) SARS-CoV-2 (PCR) (Not Detecte) Coronavirus NL63 (PCR) (Not Detect) Human Metapneumovir PCR (Not Detect) Influenza Type A (PCR) (Not Detect) Influenza Type B (PCR) (Not Detect) M. pneumoniae (PCR) (Not Detect) Parainfluenza 1 (PCR) (Not Detect) Parainfluenza 2 (PCR) (Not Detect) Parainfluenza 3 (PCR) (Not Detect) Parainfluenza 4 (PCR) (Not Detect) RSV (PCR) (Not Detect) Entero/Rhino (PCR) (Not Detect) 04/26/21 Range/Units 19:05 WBC (4.5-11.0) X10^3/uL RBC (4.0-5.2) X10^6/uL Hgb (12.0-16.0) g/dL Hct (36-46) % MCV (80-100) fL MCH (26-34) PG MCHC (30-36) % RDW (11.6-14.8) % Plt Count (150-400) X10^3/uL Neut % (Auto) (50-75) % Lymph % (Auto) (25-40) % [place] % (Auto) (3-14) % Eos % (Auto) (2-4) % Baso % (Auto) (0-2) % Neut # (Auto) (1156-7058) /uL Lymph # (Auto) (9170-4590) /uL [place] # (Auto) (0-900) /uL Eos # (Auto) (0-450) /uL Baso # (Auto) (0-100) /uL Sodium (137-145) mmol/L Potassium (3.4-5.1) mmol/L Chloride (98-107) mmol/L Carbon Dioxide (22-32) mmol/L BUN (7-17) mg/dL Creatinine (0.52-1.04) mg/dL Estimated GFR (>60) mL/min BUN/Creatinine Ratio (6-22) Glucose (70-100) mg/dL Calcium (8.4-10.2) mg/dL Total Bilirubin (0.2-1.3) mg/dL AST (14-36) IU/L ALT (<35) IU/L Alkaline Phosphatase (38-126) U/L Total Protein (6.3-8.2) g/dL Albumin (3.5-5.0) g/dL Globulin (1.7-4.1) g/dL Albumin/Globulin Ratio (1.0-2.8) Lipase (23-300) U/L Ethyl Alcohol ( - 10) mg/dL Chlamy pneumoniae PCR Not detected (Not Detect) Adenovirus (PCR) Not detected (Not Detect) B. pertussis DNA (PCR) Not detected (Not Detecte) B.parapertussis DNA PCR Not detected (Not Detecte) Coronavirus OC43 (PCR) Not detected (Not Detect) Coronavirus HKU1 (PCR) Not detected (Not Detect) Coronavirus 229E (PCR) Not detected (Not Detect) SARS-CoV-2 (PCR) Not detected (Not Detecte) Coronavirus NL63 (PCR) Not detected (Not Detect) Human Metapneumovir PCR Not detected (Not Detect) Influenza Type A (PCR) Not detected (Not Detect) Influenza Type B (PCR) Not detected (Not Detect) M. pneumoniae (PCR) Not detected (Not Detect) Parainfluenza 1 (PCR) Not detected (Not Detect) Parainfluenza 2 (PCR) Not detected (Not Detect) Parainfluenza 3 (PCR) Not detected (Not Detect) Parainfluenza 4 (PCR) Not detected (Not Detect) RSV (PCR) Not detected (Not Detect) Entero/Rhino (PCR) Not detected (Not Detect) Point of Care Testing Test Results Negative Urine Dip Bedside Urine Glucose Negative Bedside Urine Bilirubin - Negative Bedside Urine Ketone - Negative Urine Specific [place] 1.030 Bedside Urine Occult Blood - Negative Bedside Urine pH 6.0 Bedside Urine Urobilinogen - Negative Bedside Urine Nitrite - Negative Bedside Urine Leukocytes - Negative Esterase Imaging Data CT scan - abdomen/pelvis: Radiologist's Impression: [address] [id number] Scan ReportSigned Patient: Robyn Ornelas EMR#: [id number]: [id number]:[id number]/Sex: 41 / FDate of Service: 04/26/21Loc: EDAccession Number: [id number] Procedure: CT abdomen pelvis w con Ordering Provider: Hector Carmen MD PROCEDURE: CT ABDOMEN PELVIS W CON INDICATIONS: iv contrast only/n/v/d abd pain TECHNIQUE: After the administration of intravenous contrast, axial sections acquired from the lung bases to the pubic symphysis. Coronal and sagittal reformats were performed. For radiation dose reduction, the following was used: automated exposure control, adjustment of mA and/or kV according to patient size. COMPARISON: None. FINDINGS: Image quality: Excellent. Lung bases: Unremarkable. Heart: No significant findings. ABDOMEN: Liver: Unremarkable. Gallbladder: Is within normal limits Biliary ducts: Unremarkable. Pancreas: Unremarkable. Spleen: Unremarkable. Adrenal Glands: Unremarkable. Kidneys and Ureters: Unremarkable. Stomach and Bowel: Stomach is nondistended. Small hiatal hernia is present. There are multiple moderately thickened loops of small. There is thickening the cecum and ascending colon. Visualized portions of the appendix are within normal limits. Remainder of the colon is nondistended. Peritoneum: No pneumoperitoneum. Small amount of free fluid within the pelvis, perihepatic location, and within the right pericolic gutter. Ventral Wall: No hernias. Abdominal Nodes: No retroperitoneal or mesenteric adenopathy by size criteria. Multiple mildly prominent mesenteric lymph nodes are present, consistent with reactive lymph node enlargement. Vessels: Aorta and inferior vena cava are normal in size. PELVIS: Pelvic Organs: Unremarkable. Bladder: Unremarkable. Pelvic Nodes: No enlarged lymph nodes. Miscellaneous: No hernias are seen. Bones: Unremarkable. IMPRESSION: 1. Enterocolitis. Small amount associated free fluid. 2. Visualized portions of the appendix are within normal limits. 3. Small hiatal hernia. Dictated by: Kenneth Lester M.D. on 04/26/2021 at 18:59 Approved by: Kenneth Lester M.D. on 04/26/2021 at 19:02 [facility] Narrative Medical decision making narrative: Appropriate for admission for pancreatitis. Will need IV fluids and nausea control. No antibiotics indicated this time. Patient and agreed treatment plan Discharge Plan Departure Patient Disposition: Admitted as Observation Clinical Impression: Acute pancreatitis Qualifiers: Pancreatitis type: unspecified pancreatitis type Acute pancreatitis complication: unspecified Qualified Code(s): K85.90 - Acute pancreatitis without necrosis or infection, unspecified Admit Date/Time: 04/26/21 19:26 Admit Provider: Susana Neff
[2021-04-26] MEDS: LORazepam 2 MG/ML INJ 1 MG IV (18:40)
[2021-04-26 18:45] LABS: Ethanol (ETOH) 31 mg/dL
[2021-04-26] MEDS: SODIUM CHLORIDE 0.9% 1,000 ML 1000 ML IV (19:19)
[2021-04-26 20:28] LABS: Adenovirus Not Detected (Not Detect); B. parapertussis Not Detected (Not Detecte); Bordetella pertussis Not Detected (Not Detecte); Chlamydophila pneumoniae Not Detected (Not Detect); Coronavirus 229E Not Detected (Not Detect); Coronavirus HKU1 Not Detected (Not Detect); Coronavirus NL 63 Not Detected (Not Detect); Coronavirus OC43 Not Detected (Not Detect); Human Metapneumovirus Not Detected (Not Detect); Human Rhinovirus/Enterovirus Not Detected (Not Detect); Influenza A Not Detected (Not Detect); Influenza B Not Detected (Not Detect); Mycoplasma pneumoniae Not Detected (Not Detect); Parainfluenza Virus 1 Not Detected (Not Detect); Parainfluenza Virus 2 Not Detected (Not Detect); Parainfluenza Virus 3 Not Detected (Not Detect); Parainfluenza Virus 4 Not Detected (Not Detect); Respiratory Syncytial Virus Not Detected (Not Detect); SARS- CoV-2 Not Detected (Not Detecte)
--- NOTE | 2021-04-26 21:08 | P.HP_ITS ---
History of Present Illness History of Present Illness Date Patient Seen: 04/26/21 Time Patient Seen: 20:30 Date of Onset of Symptoms: 04/25/21 Chief complaint: Nausea and vomiting found to have pancreatitis Narrative: Robyn Escobedo is a 41-year-old female with Star's disease and was in her usual state of health after having a dinner with her family a week ago last Tuesday. She had a glass of wine, beer and a half a [place] and felt very bloated and throw up. She then left on the following day to take care of her friends forces and then got quite bloated. Today the following Tuesday she went to a local restaurant for dinner and had 2 6 oz glasses of wine with dinner. On her way home she threw up all of the car and her called EMS. They gave her sublingual Zofran and she was not relieved. She continues to complain of bloating, feeling tight and painful around her chest and abdomen and with fatigue. She does endorse having chronic diarrhea, alternating with constipation. Denies fever, sweats or chills, difficulty swallowing, shortness of breath, dysurea or neuropathies of the upper or lower extremities. She does not have a family history of pancreatitis. She is under the care of a senior java engineer who provides her with some sort of formulated Indonesian herbal women's formulation of which those ingredients are not known. She also takes a probiotic. Patient is a and has tested herself for twice as she has been trying to conceive. In the emergency department they gave her IV Zofran with no effect. She seemed to respond to 1 mg of IV Ativan. She was requested for observation admission since she has not been able to keep anything down. She is afebrile, blood pressure 120/67, heart rate 68, respiratory rate 16, oxygen saturation 99% on room air, she weighs 93.4 kg with a BMI of 30.4. WBC is mildly elevated at 11.6 platelet count 203, she does not have a left shift although she has elevated eosinophils, potassium is 3.3 glucose 119 AST 46 ALT 35 on lipase was a 1014. Alcohol level was 31 and COVID-19 PCR is negative. Patient History Medical History Acne (~1992) Asthma Star's disease (~2002) Hypothyroid (~2002) Migraines (02/2012) Pityrosporum folliculitis (2009) Vaginal delivery (2013) Wrist fracture Surgical History [place] teeth extracted Family & Social History Family History Father Age: 72 Cancer Diabetes mellitus Mother Thyroid condition MVA (motor vehicle accident) Sister Age: 45 Thyroid condition Sister Age: 35 Diabetes mellitus Safety & Behavioral: Feels Safe in Current Yes Environment Suicidal Ideation Description None Suicide Plan Description No Plan Tobacco & Substance use: Smoking Status Never smoker alcohol intake frequency 0-2 drinks per day Substance Use Type does not use Meds Home Medications and Allergies Home Medications Medication Instructions Recorded Confirmed Type [PRO-BIOTICS ] #0 04/04/17 10/14/19 History multivitamin (Multiple Vitamins) 1 tab PO QDAY #0 04/04/17 10/14/19 History thyroid (pork) 81.25 mg tablet 65 mg PO #0 tab 03/21/18 10/14/19 History (Nature-Throid) clomiphene citrate 50 mg tablet 50 mg PO DAILY #5 tab 09/04/19 10/14/19 Rx naltrexone PO 09/27/19 10/14/19 History cyclobenzaprine 10 mg tablet 10 mg PO BEDTIME #30 tab 10/14/19 10/14/19 Rx hydrocodone 5 mg-acetaminophen 325 1 tab PO Q4-6H PRN #10 tab 12/31/19 Rx mg tablet ketorolac 10 mg tablet 10 mg PO Q6H PRN #14 tab 12/31/19 Rx prednisone 20 mg tablet 20 mg PO DAILY #5 tab 12/31/19 Rx Allergies Allergy/AdvReac Type Severity Reaction Status Date / Time shellfish derived Allergy Intermediate Verified 04/26/21 21:49 No Known Allergies Allergy Verified 10/14/19 12:25 Review of Systems Review of Systems ROS: Yes All systems reviewed with the patient and are negative except as otherwise documented Exam Vital Signs (past 8 hours): - 04/26/21 17:30 04/26/21 19:07 04/26/21 19:30 Temperature 98 F Pulse Rate 60 63 69 Respiratory Rate 20 21 16 Blood Pressure 148/85 H Pulse Oximetry 98 100 100 04/26/21 20:00 04/26/21 20:05 Temperature Pulse Rate 66 62 Respiratory Rate 16 22 Blood Pressure 132/60 Pulse Oximetry 100 100 Oxygen Delivery Method Room Air Narrative Exam Narrative: Gen: Alert, oriented, well-developed and healthy appearing 41 y.o. female, appears more comfortable HEENT: normocephalic, atraumatic, conjunctiva clear, sclera non-icteric, oral mucosa pink and moist Neck: supple, full ROM, no JVD, trachea is midline Resp: Lungs CTA, non-labored breathing CV: RRR, no murmur or rubs Abd: soft, non-tender, normoactive BTs Skin: no lesions or rashes, dry and intact Neuro: No tremors, alert and oriented X 4 w/no focal deficits. Speech clear and coherent. Extremities: moves all 4 extremities, is ambulatory, negative Yvon?s sign Psyche: normal mood and affect. Objective Labs Result Diagrams: 04/26/21 17:38 04/26/21 17:38 Labs: Laboratory Results - last 24 hr 04/26/21 04/26/21 04/26/21 17:38 17:38 17:38 WBC 11.6 H RBC 5.18 Hgb 15.7 Hct 47.0 H MCV 90.7 MCH 30.3 MCHC 33.4 RDW 13.2 Plt Count 203 Neut % (Auto) 54.8 Lymph % (Auto) 22.9 L [place] % (Auto) 5.0 Eos % (Auto) 16.9 H Baso % (Auto) 0.4 Neut # (Auto) 6400 Lymph # (Auto) 2700 [place] # (Auto) 600 Eos # (Auto) 2000 H Baso # (Auto) 0 Sodium 138 Potassium 3.3 L Chloride 104 Carbon Dioxide 25 BUN 13 Creatinine 1.00 Estimated GFR > 60.0 BUN/Creatinine Ratio 13.0 Glucose 119 H Calcium 9.5 Total Bilirubin 0.6 AST 46 H ALT 35 H Alkaline Phosphatase 97 Total Protein 8.1 Albumin 4.5 Globulin 3.6 Albumin/Globulin Ratio 1.3 Lipase 8014 H Ethyl Alcohol 31 H Chlamy pneumoniae PCR Adenovirus (PCR) B. pertussis DNA (PCR) B.parapertussis DNA PCR Coronavirus OC43 (PCR) Coronavirus HKU1 (PCR) Coronavirus 229E (PCR) SARS-CoV-2 (PCR) Coronavirus NL63 (PCR) Human Metapneumovir PCR Influenza Type A (PCR) Influenza Type B (PCR) M. pneumoniae (PCR) Parainfluenza 1 (PCR) Parainfluenza 2 (PCR) Parainfluenza 3 (PCR) Parainfluenza 4 (PCR) RSV (PCR) Entero/Rhino (PCR) 04/26/21 19:05 WBC RBC Hgb Hct MCV MCH MCHC RDW Plt Count Neut % (Auto) Lymph % (Auto) [place] % (Auto) Eos % (Auto) Baso % (Auto) Neut # (Auto) Lymph # (Auto) [place] # (Auto) Eos # (Auto) Baso # (Auto) Sodium Potassium Chloride Carbon Dioxide BUN Creatinine Estimated GFR BUN/Creatinine Ratio Glucose Calcium Total Bilirubin AST ALT Alkaline Phosphatase Total Protein Albumin Globulin Albumin/Globulin Ratio Lipase Ethyl Alcohol Chlamy pneumoniae PCR Not detected Adenovirus (PCR) Not detected B. pertussis DNA (PCR) Not detected B.parapertussis DNA PCR Not detected Coronavirus OC43 (PCR) Not detected Coronavirus HKU1 (PCR) Not detected Coronavirus 229E (PCR) Not detected SARS-CoV-2 (PCR) Not detected Coronavirus NL63 (PCR) Not detected Human Metapneumovir PCR Not detected Influenza Type A (PCR) Not detected Influenza Type B (PCR) Not detected M. pneumoniae (PCR) Not detected Parainfluenza 1 (PCR) Not detected Parainfluenza 2 (PCR) Not detected Parainfluenza 3 (PCR) Not detected Parainfluenza 4 (PCR) Not detected RSV (PCR) Not detected Entero/Rhino (PCR) Not detected Assessment & Plan Assessment & Plan narrative: Robyn Ornelas will be placed into observation for nausea and vomiting in the setting of acute pancreatitis. 1. Intractable nausea and vomiting in the setting of acute pancreatitis * She is written for IV promethazine and Ativan * Clear liquids * IV normal saline at 100 mL/hour * In the ED her CIWA scale was 1, will assess x1 on the floor, she does not appear to be intoxicated or in withdrawal. * Amount of stated alcohol use would not lead me to believe that this could cause a severe pancreatitis as her labs would indicate * Recommended that the patient refrain from alcohol use and if she continues to have symptoms, that she review her herbal medications with either her naturpathic physician or a pharmacist to see whether there may be an offending source 2. Hypokalemia, acute, present on admission with a level of 3.3 * I have requested that her normal saline include an additive of 40 mEq of potassium VTE Prophylaxis: Wells risk score 0 [X] Bilateral SCDs Patient is placed into observation as her stay is not expected to exceed 2 midnights. FEN: IV fluids: NS at 100 ml/hour, diet: clears, advance as tolerated, labs: CBC, C/BMP, liver enzymes, Mag Consultants None Dispo: probable discharge to home Code status: Full code as discussed with the patient who identifies , Kal Ornelas as her surrogate and POA. I confirmed that the patient's advanced care plan is present, code status is determined, or surrogate decision maker is listed on the patient's medical rec ord. [X] I have utilized all available immediate resources to obtain, update, or review of the patient's current medications [X] The patient has current or prior documentation of the left ventricular ejection fraction (LEVF) less than 40% or moderate or severely depressed left ventricular systolic function. [X] No COVID-19 COVID-19 status: Negative Result date/Date tested (Pos, Neg/Pending): 04/26/21 Scores Wells' Criteria for PE Clinical signs and symptoms of DVT: No PE is #1 Dx or equally likely: No Heart rate > 100: No Immobilization at least 3 days or surg in previous 4 weeks: No History of PE or DVT: No Hemoptysis: No Malignancy w/Treatment within 6 months or palliative: No Wells' PE Score total: 0 Quality VTE Deep Vein Thrombosis/Pulmonary Embolism Present on Admission: No
[2021-04-26] MEDS: SODIUM CHLORIDE 0.9% 1,000 ML 100 ML IV ×2 (21:30→22:50)
[2021-04-26] MEDS: POTASSIUM CHLORIDE IN WATER 10 MEQ/100 ML PIGGYBACK 100 MEQ IV (22:50)
[2021-04-27] MEDS: POTASSIUM CHLORIDE IN WATER 10 MEQ/100 ML PIGGYBACK 100 MEQ IV ×3 (00:13→02:38)
[2021-04-27 00:25] VITALS: BP 121/61; PULSE 61; RESP 14; TEMP 36.8; O2SAT 96
[2021-04-27] MEDS: LEVOTHYROXINE 50 MCG TABLET PO (05:55)
[2021-04-27] MEDS: LEVOTHYROXINE 125 MCG TABLET PO (05:55)
[2021-04-27 05:57] LABS: Add Manual Diff / Slide Review NO; Basophils Absolute Auto 100 /uL (0-100); Basophils Percent Auto 0.5 % (0-2); Eosinophils Absolute Auto 1200 /uL (0-450); Eosinophils Percent Auto 9.3 % (2-4); Hematocrit 39.2 % (36-46); Lymphocytes Absolute Auto 1700 /uL (1100-4500); Lymphocytes Percent Auto 12.8 % (25-40); Mean Corpuscular HGB Conc 33.2 % (30-36); Mean Corpuscular Hemoglobin 29.9 PG (26-34); Mean Corpuscular Volume 90.1 fL (80-100); Monocytes Absolute Auto 500 /uL (0-900); Monocytes Percent Auto 3.9 % (3-14); Neutrophils Absolute Auto 9800 /uL (1500-7000); Neutrophils Percent Auto 73.5 % (50-75); Platelet Count 167 X10^3/uL (150-400); Red Blood Cell Count 4.34 X10^6/uL (4.0-5.2); Red Cell Distribution Width 13.4 % (11.6-14.8); White Blood Cell Count 13.3 X10^3/uL (4.5-11.0)
[2021-04-27 06:11] LABS: Alanine Aminotransferase 25 IU/L (<35); Albumin 3.4 g/dL (3.5-5.0); Albumin Globulin Ratio 1.2 (1.0-2.8); Alkaline Phosphatase 75 U/L (38-126); Aspartate Aminotransferase 30 IU/L (14-36); Bilirubin Total 0.9 mg/dL (0.2-1.3); Bilirubin Unconjugated 0.9 mg/dL (0.0-1.1); Blood Urea Nitrogen 9 mg/dL (7-17); Calcium 8.1 mg/dL (8.4-10.2); Carbon Dioxide 25 mmol/L (22-32); Chloride 110 mmol/L (98-107); Estimated Glomerular Filt Rate > 60.0 mL/min (>60); Globulin 2.8 g/dL (1.7-4.1); Glucose 92 mg/dL (70-100); HEMOLYSIS < 15 (0-50); Potassium 4.2 mmol/L (3.4-5.1); Sodium 137 mmol/L (137-145); Total Protein 6.2 g/dL (6.3-8.2)
--- NOTE | 2021-04-27 07:09 | DI.US.S_ITS ---
PROCEDURE: US ABDOMEN LIMITED INDICATIONS: PANCREATITIS TECHNIQUE: Real-time scanning was performed of the abdominal and retroperitoneal organs, with image ultrasound FINDINGS: Liver: Liver is normal in size and homogeneous in echotexture. Gallbladder: There is no gallstone. No gallbladder wall thickening or pericholecystic fluid. No sonographic Walker sign. Biliary ducts: Intrahepatic bile ducts are non-dilated. Extrahepatic bile duct caliber measures 3.4 mm. Normal is 6-7 mm or less in diameter, or 10 mm or less post-cholecystectomy. Pancreas: Visualized portions of the pancreas are sonographically normal. IMPRESSION: Unremarkable ultrasound examination of right upper quadrant abdomen. Dictated by: Don Navas M.D. on 04/27/2021 at 13:00 Approved by: Don Navas M.D. on 04/27/2021 at 13:01
[2021-04-27 08:00] VITALS: BP 115/59; PULSE 72; RESP 18; TEMP 36.6; O2SAT 98
[2021-04-27] MEDS: LIOTHYRONINE 5 MCG TABLET PO (08:49)
[2021-04-27] MEDS: SODIUM CHLORIDE 0.9% 1,000 ML 100 ML IV (10:21)
[2021-04-27 15:20] VITALS: BP 120/71; PULSE 57; RESP 16; TEMP 36.7; O2SAT 99
[2021-04-27] MEDS: ACETAMINOPHEN 325 MG TABLET 650 MG PO (16:27)
[2021-04-27] MEDS: METOCLOPRAMIDE 10 MG/2 ML INJ 5 MG IV (16:55)
--- NOTE | 2021-04-27 17:56 | PM.DS.1 ---
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 She had a glass of wine, beer and a half a [place] and felt very bloated and throw up. She then left on the following day to take care of her friends forces and then got quite bloated. Today the following Tuesday she went to a local restaurant for dinner and had 2 6 oz glasses of wine with dinner. On her way home she threw up all of the car and her called EMS. They gave her sublingual Zofran and she was not relieved. She continues to complain of bloating, feeling tight and painful around her chest and abdomen and with fatigue. She does endorse having chronic diarrhea, alternating with constipation. Denies fever, sweats or chills, difficulty swallowing, shortness of breath, dysurea or neuropathies of the upper or lower extremities. She does not have a family history of pancreatitis. She is under the care of a overhead garage door hanger who provides her with some sort of formulated Croatian herbal women's formulation of which those ingredients are not known. She also takes a probiotic. Patient is a and has tested herself for twice as she has been trying to conceive. In the emergency department they gave her IV Zofran with no effect. She seemed to respond to 1 mg of IV Ativan. She was requested for observation admission since she has not been able to keep anything down. She is afebrile, blood pressure 120/67, heart rate 68, respiratory rate 16, oxygen saturation 99% on room air, she weighs 93.4 kg with a BMI of 30.4. WBC is mildly elevated at 11.6 platelet count 203, she does not have a left shift although she has elevated eosinophils, potassium is 3.3 glucose 119 AST 46 ALT 35 on lipase was a 1014. Alcohol level was 31 and COVID-19 PCR is negative. Discharge Providers Provider Date of admission: 04/26/21 19:26 Discharge Date: 04/27/21 Primary care physician: Deysi Mauricio, [place] Discharge provider: Slava Mendez DO Summary Hospital Course Discharge Diagnosis: 1. Enterocolitis, acute, present on admission 2. Elevated lipase, present on admission, possible acute pancreatitis. 3. hypokalemia, acute, improved 4. hypothyroidism, chronic Hospital Course: This is a 41-year-old female with a past medical history of hypothyroidism who presented with vague complaints of abdominal bloating, pain, and nausea. Her CT imaging showed evidence of enterocolitis but no inflammation of her pancreas. Lipase was markedly elevated at 8014, however. Her symptoms had improved the following day and she was tolerating a low-fat diet with only minimal nausea. She was discharged with oral metoclopramide which helped her symptoms the most. She was counseled on return precautions. At this point her final diagnosis is not exactly clear low she did have enterocolitis seen on CT imaging which would explain her symptoms. The elevated lipase is nonspecific, and her symptoms could be attributable to pancreatitis however there was no inflammation of her pancreas on CT imaging. She was counseled on alcohol cessation, and had an unremarkable right upper quadrant ultrasound without evidence of gallstones. Her triglycerides were normal as of a few months ago based on available review of laboratory data. At this point, the most likely etiology of her symptoms remains a viral enterocolitis, with further possibilities as noted above. Another possibility may be an inflammatory bowel disease, but she has had no bloody diarrhea or other symptoms to suggest this. Exam Vital Signs (past 8 hours): - 04/27/21 15:20 Temperature 98.0 F Pulse Rate 57 L Respiratory Rate 16 Blood Pressure 120/71 Pulse Oximetry 99 Oxygen Delivery Method Room Air Oxygen Flow Rate 0 Narrative Exam Narrative: Gen: Alert, oriented, well-developed and healthy appearing 41 y.o. female, appears more comfortable HEENT: normocephalic, atraumatic, conjunctiva clear, sclera non-icteric, oral mucosa pink and moist Neck: supple, full ROM, no JVD, trachea is midline Resp: Lungs CTA, non-labored breathing CV: RRR, no murmur or rubs Abd: soft, non-tender, normoactive BTs Skin: no lesions or rashes, dry and intact Neuro: No tremors, alert and oriented X 4 w/no focal deficits. Speech clear and coherent. Extremities: moves all 4 extremities, is ambulatory, negative Vyon?s sign Psyche: normal mood and affect. Objective Labs Result Diagrams: 04/27/21 05:21 04/27/21 05:21 Labs: Laboratory Results - last 24 hr 04/26/21 04/26/21 04/26/21 17:38 17:38 17:38 WBC 11.6 H RBC 5.18 Hgb 15.7 Hct 47.0 H MCV 90.7 MCH 30.3 MCHC 33.4 RDW 13.2 Plt Count 203 Neut % (Auto) 54.8 Lymph % (Auto) 22.9 L [place] % (Auto) 5.0 Eos % (Auto) 16.9 H Baso % (Auto) 0.4 Neut # (Auto) 6400 Lymph # (Auto) 2700 [place] # (Auto) 600 Eos # (Auto) 2000 H Baso # (Auto) 0 Sodium 138 Potassium 3.3 L Chloride 104 Carbon Dioxide 25 BUN 13 Creatinine 1.00 Estimated GFR > 60.0 BUN/Creatinine Ratio 13.0 Glucose 119 H Calcium 9.5 Magnesium Total Bilirubin 0.6 Conjugated Bilirubin Unconjugated Bilirubin AST 46 H ALT 35 H Alkaline Phosphatase 97 Total Protein 8.1 Albumin 4.5 Globulin 3.6 Albumin/Globulin Ratio 1.3 Lipase 8014 H Ethyl Alcohol 31 H Chlamy pneumoniae PCR Adenovirus (PCR) B. pertussis DNA (PCR) B.parapertussis DNA PCR Coronavirus OC43 (PCR) Coronavirus HKU1 (PCR) Coronavirus 229E (PCR) SARS-CoV-2 (PCR) Coronavirus NL63 (PCR) Human Metapneumovir PCR Influenza Type A (PCR) Influenza Type B (PCR) M. pneumoniae (PCR) Parainfluenza 1 (PCR) Parainfluenza 2 (PCR) Parainfluenza 3 (PCR) Parainfluenza 4 (PCR) RSV (PCR) Entero/Rhino (PCR) 04/26/21 04/27/21 04/27/21 19:05 05:21 05:21 WBC 13.3 H RBC 4.34 Hgb 13.0 Hct 39.2 MCV 90.1 MCH 29.9 MCHC 33.2 RDW 13.4 Plt Count 167 Neut % (Auto) 73.5 Lymph % (Auto) 12.8 L [place] % (Auto) 3.9 Eos % (Auto) 9.3 H Baso % (Auto) 0.5 Neut # (Auto) 9800 H Lymph # (Auto) 1700 [place] # (Auto) 500 Eos # (Auto) 1200 H Baso # (Auto) 100 Sodium 137 Potassium 4.2 Chloride 110 H Carbon Dioxide 25 BUN 9 Creatinine 0.82 Estimated GFR > 60.0 BUN/Creatinine Ratio 11.0 Glucose 92 Calcium 8.1 L Magnesium 2.0 Total Bilirubin 0.9 Conjugated Bilirubin 0.0 Unconjugated Bilirubin 0.9 AST 30 ALT 25 Alkaline Phosphatase 75 Total Protein 6.2 L Albumin 3.4 L Globulin 2.8 Albumin/Globulin Ratio 1.2 Lipase Ethyl Alcohol Chlamy pneumoniae PCR Not detected Adenovirus (PCR) Not detected B. pertussis DNA (PCR) Not detected B.parapertussis DNA PCR Not detected Coronavirus OC43 (PCR) Not detected Coronavirus HKU1 (PCR) Not detected Coronavirus 229E (PCR) Not detected SARS-CoV-2 (PCR) Not detected Coronavirus NL63 (PCR) Not detected Human Metapneumovir PCR Not detected Influenza Type A (PCR) Not detected Influenza Type B (PCR) Not detected M. pneumoniae (PCR) Not detected Parainfluenza 1 (PCR) Not detected Parainfluenza 2 (PCR) Not detected Parainfluenza 3 (PCR) Not detected Parainfluenza 4 (PCR) Not detected RSV (PCR) Not detected Entero/Rhino (PCR) Not detected PFSH Medical History Acne (~1992) Asthma Star's disease (~2002) Hypothyroid (~2002) Migraines (02/2012) Pityrosporum folliculitis (2009) Vaginal delivery (2013) Wrist fracture Surgical History [place] teeth extracted Family History Father Age: 72 Cancer Diabetes mellitus Mother Thyroid condition MVA (motor vehicle accident) Sister Age: 45 Thyroid condition Sister Age: 35 Diabetes mellitus Social History Smoking Status: Never smoker Discharge Plan Discharge Plan Patient Disposition: Home Provider Discharge Comment: You were admitted to the hospital with nausea and abdominal pain and bloating. Your CT imaging shows evidence of inflammation in your small bowel and colon, though this is non-specific and typically is viral in nature. You also had an elevated lipase but it is not exactly clear if this was pancreatitis or not. I would recommend a low fat diet for a few weeks given you improved with rest. Please follow up with your PCP. Discharge orders & Medications Prescriptions: New metoclopramide HCl 5 mg tablet 5 mg PO Q6H PRN (Reason: nausea and vomiting) 30 Days Qty: 30 RF: 0 Continued naltrexone 4.5 mg PO DAILY RF: 0 multivitamin [Multiple Vitamins] 1 EACH tablet 1 tab PO QDAY Qty: 0 RF: 0 [PRO-BIOTICS ] 1 cap PO DAILY Qty: 0 RF: 0 levothyroxine 175 mcg tablet 175 mcg PO DAILY RF: 0 liothyronine 5 mcg tablet 5 mcg PO DAILY RF: 0 Follow up/Referrals: Deysi Mauricio ND [Primary Care Provider] - Diet/Activity/Treatments Diet: Diet as Tolerated and Low-fat Activity: As tolerated Discharge Data Primary Care Provider: Deysi Mauricio Attending Provider: Susana Neff VTE Deep Vein Thrombosis/Pulmonary Embolism Present on Admission: No
--- NOTE | 2021-04-27 18:53 | PC.NURSE ---
Pt received discharge orders. HL discontinued intact. Home instructions given w/ apparent understanding Pt escorted to waiting vehicle w/apparent understanding.
== END 2021-04-27 18:55 | disposition home or self-care (01) ==
LOC: ED 18:04 → AC 19:27
PROVIDERS: Emergency Medicine; Admitting Provider Nurse Practitioner Family; Emergency Provider Emergency Medicine; PCP Naturopath; Referring Provider Emergency Medicine; Visit Provider Nurse Practitioner Family
DX: K52.9 Noninfective gastroenteritis and colitis, unspecified (principal); Z20.822 Contact with and (suspected) exposure to COVID-19; E03.9 Hypothyroidism, unspecified; E87.6 Hypokalemia; R74.8 Abnormal levels of other serum enzymes
CPT/HCPCS: 36415; 74177; 76705; 80048; 80053; 80076; 80320; 81003; 81025; 83690; 83735; 85025; 87633; 96361; 96365; 96366; 96375; 99284; G0378; J2060; J2405; J2765; Q9967

== ENCOUNTER → 2021-05-04 08:19 | Outpatient (CLI) | payer OTHER, SELFPAY ==
[2021-04-26 19:51] VITALS: BMI 30.4
[2021-05-04 09:01] LABS: Add Manual Diff / Slide Review NO; Basophils Absolute Auto 100 /uL (0-100); Basophils Percent Auto 0.9 % (0-2); Eosinophils Absolute Auto 800 /uL (0-450); Eosinophils Percent Auto 12.3 % (2-4); Hematocrit 41.8 % (36-46); Lymphocytes Absolute Auto 1700 /uL (1100-4500); Lymphocytes Percent Auto 25.3 % (25-40); Mean Corpuscular HGB Conc 33.5 % (30-36); Mean Corpuscular Hemoglobin 30.5 PG (26-34); Mean Corpuscular Volume 90.8 fL (80-100); Monocytes Absolute Auto 400 /uL (0-900); Monocytes Percent Auto 6.2 % (3-14); Neutrophils Absolute Auto 3600 /uL (1500-7000); Neutrophils Percent Auto 55.3 % (50-75); Platelet Count 200 X10^3/uL (150-400); Red Cell Distribution Width 13.3 % (11.6-14.8); White Blood Cell Count 6.6 X10^3/uL (4.5-11.0)
[2021-05-04 09:14] LABS: Glucose 97 mg/dL (70-100); HEMOLYSIS < 15 (0-50); Lipase 49 U/L (23-300); Potassium 4.4 mmol/L (3.4-5.1)
== END ==
PROVIDERS: PCP Naturopath; Referring Provider Naturopath; Visit Provider Naturopath
DX: K85.00 Idiopathic acute pancreatitis without necrosis or infection (principal)
CPT/HCPCS: 36415; 82947; 83036; 83690; 84132; 85025

== ENCOUNTER → 2021-09-02 11:46 | Outpatient (CLI) | payer OTHER, SELFPAY ==
[2021-04-26 19:51] VITALS: BMI 30.4
--- NOTE | 2021-09-02 11:49 | DI.RAD.S_ITS ---
PROCEDURE: XR LUMBAR SPINE 2-3V INDICATIONS: Radiculopathy, cervical region; lumbar disc displacement TECHNIQUE: 3 views of the lumbar spine were acquired. COMPARISON: None. FINDINGS: Bones: 5 [id number] vertebrae are present. There is normal bony alignment. No vertebral body compression fractures. No suspicious bony lesions. Moderate L5-S1 degenerative disc disease. Mild L2-L3, L3-L4 and L4-L5 degenerative disc disease. Mild L5-S1 facet arthropathy. 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 Soft tissues: Overlying bowel gas pattern is normal. No suspicious soft tissue calcifications. IMPRESSION: 1. Multilevel degenerative disc disease. 2. L5-S1 facet arthropathy. 3. No acute osseous lesion. If symptoms and/or clinical suspicion for pathology persists, evaluation with MRI should be considered for further assessment. Dictated by: Genevieve Riddle MD, PhD on 09/02/2021 at 12:24 Approved by: Genevieve Riddle MD, PhD on 09/02/2021 at 12:25
--- NOTE | 2021-09-02 11:49 | DI.RAD.S_ITS ---
PROCEDURE: XR CERVICAL SPINE 2V OR 3V INDICATIONS: Radiculopathy, cervical region; lumbar disc displacement TECHNIQUE: 3 view(s) of the cervical spine were acquired. COMPARISON: None. FINDINGS: Bones: No fractures or dislocations to the T2 level. The lateral masses of C1 appear intact on the odontoid view. No suspicious bony lesions. Moderate C4-C5, C5-C6 and C6-C7 degenerative disc disease. Mild bilateral C4-C5 and C5-C6 uncovertebral hypertrophy. Soft tissues: No prevertebral soft tissue swelling. IMPRESSION: 1. Multilevel degenerative disc disease. 2. Multilevel uncovertebral arthropathy. 3. No acute osseous lesion. If symptoms and/or clinical suspicion for pathology persists, evaluation with MRI should be considered for further assessment. Dictated by: Genevieve Riddle MD, PhD on 09/02/2021 at 12:23 Approved by: Genevieve Riddle MD, PhD on 09/02/2021 at 12:24
== END ==
PROVIDERS: PCP Naturopath; Referring Provider Chiropractor; Visit Provider Chiropractor
DX: M50.121 Cervical disc disorder at C4-C5 level with radiculopathy (principal); M47.22 Other spondylosis with radiculopathy, cervical region; M51.26 Other intervertebral disc displacement, lumbar region; M51.36 Other intervertebral disc degeneration, lumbar region; M51.37 Other intervertebral disc degeneration, lumbosacral region; M47.816 Spondylosis without myelopathy or radiculopathy, lumbar region
CPT/HCPCS: 72040; 72100

== ENCOUNTER → 2021-11-17 10:57 | Outpatient (CLI) | payer OTHER, SELFPAY ==
[2021-04-26 19:51] VITALS: BMI 30.4
--- NOTE | 2021-11-17 | DI.RAD.S_ITS ---
PROCEDURE: XR SHOULDER LT MIN 2V INDICATIONS: Strain of muscle(s) and tendon(s) of the rotator c TECHNIQUE: 3 views of the shoulder were acquired. COMPARISON: None. FINDINGS: Bones: No fractures or dislocations. No suspicious bony lesions. Visualized ribs appear intact. Soft tissues: No suspicious soft tissue calcifications. IMPRESSION: No evidence acute bony abnormality of the left shoulder. If clinical suspicion and/or symptoms persist, further assessment with repeat plain films, or advanced imaging (e.g., CT, MRI, or bone scan) may be helpful for further assessment. Dictated by: Albert Banuelos M.D. on 11/17/2021 at 17:05 Approved by: Albert Banuelos M.D. on 11/17/2021 at 17:06
== END ==
PROVIDERS: PCP Naturopath; Referring Provider Chiropractor; Visit Provider Chiropractor
DX: S46.012A Strain of muscle(s) and tendon(s) of the rotator cuff of left shoulder, initial encounter (principal)
CPT/HCPCS: 73030

== ENCOUNTER → 2022-04-10 09:36 | Outpatient (CLI) | payer OTHER, SELFPAY ==
[2021-04-26 19:51] VITALS: BMI 30.4
[2022-04-10 11:26] LABS: Alanine Aminotransferase 23 IU/L (<35); Albumin 4.4 g/dL (3.5-5.0); Albumin Globulin Ratio 1.3 (1.0-2.8); Alkaline Phosphatase 60 U/L (38-126); Aspartate Aminotransferase 27 IU/L (14-36); BUN Creatinine Ratio 17.9 (6-22); Bilirubin Total 0.9 mg/dL (0.2-1.3); Blood Urea Nitrogen 15 mg/dL (7-17); Calcium 8.8 mg/dL (8.4-10.2); Carbon Dioxide 26 mmol/L (22-32); Chloride 106 mmol/L (98-107); Cholesterol 192 mg/dL (140-199); Estimated Glomerular Filt Rate > 60 mL/min (>60); Globulin 3.4 g/dL (1.7-4.1); Glucose 97 mg/dL (70-100); HDL Cholesterol 59 mg/dL (40-60); HEMOLYSIS < 15 (0-50); LDL Cholesterol Calculated 114 mg/dL (<100); Potassium 4.7 mmol/L (3.4-5.1); Sodium 138 mmol/L (137-145); Total Protein 7.8 g/dL (6.3-8.2); Triglycerides 97 mg/dL (35-150)
[2022-04-10 11:29] LABS: Add Manual Diff / Slide Review NO; Basophils Absolute Auto 0 /uL (0-100); Basophils Percent Auto 0.4 % (0-2); Eosinophils Absolute Auto 100 /uL (0-450); Eosinophils Percent Auto 1.5 % (2-4); Hematocrit 41.8 % (36-46); Lymphocytes Absolute Auto 1300 /uL (1100-4500); Lymphocytes Percent Auto 18.4 % (25-40); Mean Corpuscular HGB Conc 33.5 % (30-36); Mean Corpuscular Hemoglobin 30.6 PG (26-34); Mean Corpuscular Volume 91.3 fL (80-100); Monocytes Absolute Auto 600 /uL (0-900); Monocytes Percent Auto 7.5 % (3-14); Neutrophils Absolute Auto 5300 /uL (1500-7000); Neutrophils Percent Auto 72.2 % (50-75); Platelet Count 197 X10^3/uL (150-400); Red Blood Cell Count 4.58 X10^6/uL (4.0-5.2); Red Cell Distribution Width 12.7 % (11.6-14.8); White Blood Cell Count 7.3 X10^3/uL (4.5-11.0)
[2022-04-10 12:00] LABS: Free T3, Triiodothyronine Free 3.16 pg/mL (2.77-5.27); Free T4, Direct Thyroxine 1.03 ng/dL (0.78-2.19)
[2022-04-10 12:14] LABS: Thyroid Stimulating Hormone 1.33 uIU/mL (0.47-4.68)
[2022-04-12 11:46] LABS: Thyroid Peroxidase Antibodies 96 IU/mL (0-34)
== END ==
PROVIDERS: PCP Naturopath; Referring Provider Naturopath; Visit Provider Naturopath
DX: Z00.00 Encounter for general adult medical examination without abnormal findings (principal); E06.3 Autoimmune thyroiditis
CPT/HCPCS: 36415; 80053; 80061; 84439; 84443; 84481; 85025; 86376

== ENCOUNTER 2022-06-19 18:15 | Emergency (ER) | payer OTHER, MEDICAID, SELFPAY ==
[2021-04-26 19:51] VITALS: BMI 30.4
[2022-06-19 18:53] VITALS: BP 134/76; PULSE 63; RESP 18; TEMP 36.9; O2SAT 99; BMI 32.5
--- NOTE | 2022-06-19 19:40 | ED_ITS ---
HPI - Eye Problem <Pasquale Luna PA-C - Last Filed: 06/19/22 19:56> General Chief complaint: Eye Problems Stated complaint: Rt Eye Swelling Time Seen by Provider: 06/19/22 19:21 Source: patient Mode of arrival: Ambulatory History of Present Illness HPI Narrative: Patient is a 40-year-old female who presents to the emergency room today with complaint of bubble to her eyeball has resolved. Patient states that today around 5:00 a.m. she was watching TV when she noticed what felt like a bubble that was on her bulbar conjunctiva. Patient states she immediately removed her contact after she saw the bubble on the medial side of her both bulbar conjunctiva proximal to her medial canthus. Patient states she then prepared herself to report to the emergency room. States that when she arrived here she noticed that the condition had almost totally resolved. Still feels a little sensation in the eye but feels like it is getting better. Would like to make sure there is nothing serious going on. Patient strongly denies: Decreased vision, Halos around lights, Headache, Severe eye pain, Nausea or vomiting. Related Data Home Medications Medication Instructions Recorded Confirmed [PRO-BIOTICS ] 1 cap PO DAILY ##0 04/04/17 04/27/21 multivitamin (Multiple Vitamins 1 tab PO QDAY vitamin ##0 04/04/17 04/27/21 tablet) naltrexone 4.5 mg PO DAILY 09/27/19 04/27/21 levothyroxine 175 mcg tablet 175 mcg PO DAILY 04/27/21 04/27/21 liothyronine 5 mcg tablet 5 mcg PO DAILY 04/27/21 04/27/21 Allergies Allergy/AdvReac Type Severity Reaction Status Date / Time shellfish derived Allergy Intermediate Verified 04/26/21 21:49 No Known Allergies Allergy Verified 10/14/19 12:25 Review of Systems <Pasquale Luna PA-C - Last Filed: 06/19/22 19:56> Review of Systems Narrative: R.O.S.: General: No fever, chills or fatigue. Cardiovascular: No chest pain or palpitations Respiratory: No S.O.B. HEENT: Had sensation of the bubble 2 I that is resolving. No congestion, ear pain, rhinorrhea, sore throat or tinnitus Gastrointestinal: No nausea or vomiting : No urinary concerns Skin: No rash or associated abnormalities Musculoskeletal: No pain in muscles or joints, no limitation of range of motion, no paresthesia or numbness. ?? Neurological: Awake, alert and in not apparent distress. No Headaches, changes in vision or other related neurological concerns. Patient History <Pasquale Luna PA-C - Last Filed: 06/19/22 19:56> Medical History Acne (~1992) Asthma Star's disease (~2002) Hypothyroid (~2002) Migraines (02/2012) Pityrosporum folliculitis (2009) Vaginal delivery (2013) Wrist fracture Surgical History [place] teeth extracted Family History Father Age: 72 Cancer Diabetes mellitus Mother Thyroid condition MVA (motor vehicle accident) Sister Age: 45 Thyroid condition Sister Age: 35 Diabetes mellitus Social History Smoking Status: Never smoker Smoking Status: Never smoker alcohol intake frequency: a few times a week Substance Use Type: does not use Exam <Pasquale Luna PA-C - Last Filed: 06/19/22 19:56> Narrative Exam Narrative: Physical Exam: ? General: normal appearance, well developed, well nourished, alert, and awake. Not in acute distress. ? Head: Normocephalic, no lesions. Chest: Lungs CTAB, no rales, rhonchi or wheezes. ?? Heart: RRR, no murmurs, rubs or gallops. Eyes: Wood's lamp exam was performed and Right eye has very minimal erythema noted on the area located medial to the border of the iris and proximal to the right medial canthus. The Wood's lamp exam was otherwise unremarkable PERRLA, EOM's full, conjunctivae clear. ? Neuro: Physiological, no localizing findings, CN3-12 intact. ?? Extremities: Warm, well perfused, FROM, no deformities, no edema. ?? Skin: Normal, no rashes, no lesions noted. ?? PSYCHIATRIC: The mood is good, no blunted affect. Speech is clear. Thought process is linear, thought content is appropriate. The voice is without significant inflection. Gastrointestinal: Soft; NT; ND; Pos BS with Neg. rebound tenderness. No scars or major deformities noted on Visual Inspection. Initial Vital Signs Initial Vital Signs: Vital Signs Temperature 98.4 F 06/19/22 18:53 Pulse Rate 63 06/19/22 18:53 Respiratory Rate 18 06/19/22 18:53 Blood Pressure 134/76 06/19/22 18:53 Pulse Oximetry 99 06/19/22 18:53 Oxygen Delivery Method 06/19/22 18:53 <Abbey Navarro MD - Last Filed: 06/20/22 03:24> Initial Vital Signs Initial Vital Signs: Vital Signs Temperature 98.4 F 06/19/22 18:53 Pulse Rate 63 06/19/22 18:53 Respiratory Rate 18 06/19/22 18:53 Blood Pressure 134/76 06/19/22 18:53 Pulse Oximetry 99 06/19/22 18:53 Oxygen Delivery Method 06/19/22 18:53 Course <Pasquale Luna PA-C - Last Filed: 06/19/22 19:56> Orders Ordered: Discontinued Medications Fluorescein Sodium (Fluorescein 1 Mg Strip) 1 mg EYE-RIGHT NOW ONE Stop: 06/19/22 19:31 Last Admin: 06/19/22 20:02 Dose: 1 mg Documented By: FRANSICO Vital Signs Vital signs: Vital Signs - 8 hr 06/19/22 20:03 Pulse Rate 61 Respiratory Rate 16 Blood Pressure 130/75 Pulse Oximetry 99 Oxygen Delivery Method Room Air <Abbey Navarro MD - Last Filed: 06/20/22 03:24> Orders Ordered: Discontinued Medications Fluorescein Sodium (Fluorescein 1 Mg Strip) 1 mg EYE-RIGHT NOW ONE Stop: 06/19/22 19:31 Last Admin: 06/19/22 20:02 Dose: 1 mg Documented By: FRANSICO Vital Signs Vital signs: Vital Signs - 8 hr 06/19/22 20:03 Pulse Rate 61 Respiratory Rate 16 Blood Pressure 130/75 Pulse Oximetry 99 Oxygen Delivery Method Room Air MDM - Eye Problem <Pasquale Luna PA-C - Last Filed: 06/19/22 19:56> MDM Narrative Medical decision making narrative: Patient presented with a sensation foreign body to her eye. Physical exam history not consistent with any urgent or emergent concerns. Provider discussed contact lens wear cleaning related concerns advised patient to follow-up her natural resources extension educator further nonemergent concerns arise. Patient advised to return to emergency room if any emergent concerns arise. Patient Discharge Plan Departure Patient Disposition: Home Clinical Impression: Irritation of right eye, Sensation of irritation of eye proper Activity Restrictions/Additional Instructions: *You have been diagnosed with irritation of the right eye. Physical exam did not reveal any urgent emergent concerns. Please return to the emergency room if any emergent concerns arise. Also suggest you report to your natural resources extension educator should any nonemergent concerns arise. [ ] *What to do: *Please continue to take your regular medications as directed. [ ] New medication prescriptions sent to your pharmacy: [ ] [ ] New medication written as a paper prescription [x] No new medications given *Please follow up with your primary care provider in 2-3 days, call for an appointment. Let them know you were seen in the Emergency Department and that we ask that you be seen in follow up. We will electronically transmit a record of today's note if your PCP is in our system *If you do not have a primary care provider please contact the [facility] Resource line at [phone]. They will ask some questions about your medical history and help get you set up with a doctor in the community. *Return to Emergency Department if you should have any new, worsening or concerning symptoms, such as [fever greater than 101 F, shaking chills, worsening pain, persistent vomiting or other bothersome symptoms] Prescriptions: No Action naltrexone 4.5 mg PO DAILY Label Comments: Pt takinig low dose 4.5 mg. Unable to select as option. multivitamin [Multiple Vitamins] 1 EACH tablet 1 tab PO QDAY Qty: 0 [PRO-BIOTICS ] 1 cap PO DAILY Qty: 0 levothyroxine 175 mcg tablet 175 mcg PO DAILY liothyronine 5 mcg tablet 5 mcg PO DAILY Label Comments: TAKE 1 TABLET BY MOUTH EVERY MORNING BEFORE MEALS Referrals: Deysi Mauricio [place] [Primary Care Provider] - Visit Report Forms: Patient Portal/API <Abbey Navarro MD - Last Filed: 06/20/22 03:24> [facility] Att[facility]: I was immediately available in the department for consultation throughout this patient's visit. I agree with documentation as above. Abbey Navarro MD
[2022-06-19] MEDS: FLUORESCEIN 1 MG STRIP EYE-RIGHT (20:02)
[2022-06-19 20:03] VITALS: BP 130/75; PULSE 61; RESP 16; O2SAT 99
== END 2022-06-19 20:04 | disposition home or self-care (01) ==
PROVIDERS: Emergency Provider Physician Assistant; PCP Naturopath
DX: H57.11 Ocular pain, right eye (principal)
CPT/HCPCS: 99282

== ENCOUNTER → 2025-07-31 08:36 | Outpatient (CLI) | payer OTHER, SELFPAY ==
[2025-05-27 15:08] VITALS: BMI 30.4
[2025-07-31 09:29] LABS: Add Manual Diff / Slide Review NO; Hematocrit 39.8 % (36-46); Hemoglobin 13.4 g/dL (12.0-16.0); Lymphocytes Absolute Auto 1200 /uL (1100-4500); Mean Corpuscular HGB Conc 33.6 % (30-36); Mean Corpuscular Hemoglobin 29.9 PG (26-34); Mean Corpuscular Volume 89.1 fL (80-100); Platelet Count 184 X10^3/uL (150-400)
[2025-07-31 09:51] LABS: Alanine Aminotransferase 20 IU/L (<35); Albumin 4.6 g/dL (3.5-5.0); Albumin Globulin Ratio 1.4 (1.0-2.8); Alkaline Phosphatase 50 U/L (38-126); Blood Urea Nitrogen 14 mg/dL (7-17); Calcium 8.9 mg/dL (8.4-10.2); Carbon Dioxide 24 mmol/L (22-32); Chloride 106 mmol/L (98-107); Cholesterol 202 mg/dL (140-199); Estimated Glomerular Filt Rate > 60 mL/min (>60); Globulin 3.3 g/dL (1.7-4.1); Glucose 93 mg/dL (70-99); HDL Cholesterol 71 mg/dL (40-60); HEMOLYSIS < 15 (0-50); Potassium 4.6 mmol/L (3.4-5.1); Sodium 139 mmol/L (137-145); Total Protein 7.9 g/dL (6.3-8.2); Triglycerides 44 mg/dL (35-150)
[2025-07-31 10:23] LABS: Thyroid Stimulating Hormone 2.22 uIU/mL (0.47-4.68)
== END ==
PROVIDERS: PCP Family Medicine; Referring Provider Family Medicine; Visit Provider Family Medicine
DX: Z00.00 Encounter for general adult medical examination without abnormal findings (principal); E78.5 Hyperlipidemia, unspecified; E03.8 Other specified hypothyroidism; E06.3 Autoimmune thyroiditis; N91.4 Secondary oligomenorrhea; Z87.19 Personal history of other diseases of the digestive system
CPT/HCPCS: 36415; 80053; 80061; 84443; 85025